=== PATIENT | female | born 1950 | race Caucasian/White ===

== ENCOUNTER 2024-10-15 10:49 | Inpatient (IN) | payer OTHER, SELFPAY ==
[2024-10-15] VITALS (25 sets, daily range): BP systolic 79–102; BP diastolic 41–68; PULSE 52–98; RESP 12–19; TEMP 33.8–37; O2SAT 14–99; BMI 28.5; BMI 22.6
--- NOTE | 2024-10-15 11:07 | EX.ED.DYSGE1 ---
HPI History of Present Illness Chief Complaint: Syncope Informant: patient Onset/Context/Timing Onset: Days (11) Context: Gradual Onset Timing: Continuous Quality: Weakness Location: Generalized Worsened by: Nothing Relieved by: Nothing Narrative Narrative: Patient presents with generalized weakness that has been getting worse over the past 11 days. Patient states her weakness is gradually getting worse. Patient has open wounds to her lower extremities with some mild redness. Patient has been having some drainage from these wounds. Patient admits to some subjective chills but denies any fevers. Patient states she has a history of thrombocytopenia. Patient denies abdominal pain, nausea, vomiting, or diarrhea. Patient denies any chest pain or shortness of breath. [facility] Medical History (Updated 10/15/24 @ 15:[address] Leo Luz DO) Hypothyroidism Chronic acquired lymphedema Chronic anemia History of primary IgA nephropathy Chronic kidney disease, stage 3b Chronic ITP (idiopathic thrombocytopenia) History of CVA (cerebrovascular accident) HLD (hyperlipidemia) HTN (hypertension) Home Medications ?Medication ?Instructions ?Recorded ?Last Taken ?Type atorvastatin 40 mg tablet 40 mg PO DAILY 10/15/24 Unknown History bisacodyl 5 mg tablet 5 mg PO QHS 10/15/24 Unknown History doxazosin 4 mg tablet 4 mg PO QHS 10/15/24 Unknown History furosemide 40 mg tablet 40 mg PO DAILY 10/15/24 Unknown History levothyroxine 200 mcg tablet 200 mcg PO DAILY 10/15/24 Unknown History metoprolol tartrate 100 mg tablet 100 mg PO BID 10/15/24 Unknown History Allergy/AdvReac Type Severity Reaction Status Date / Time adhesive Allergy Mild Rash Verified 10/15/24 11:00 tramadol AdvReac Mild Nausea Verified 10/15/24 11:00 acetaminophen (From Tylenol) AdvReac Nausea Verified 10/15/24 11:00 ampicillin AdvReac Nausea Verified 10/15/24 11:00 Fish Containing Products AdvReac PT UNSURE Verified 10/15/24 11:00 OF REACTION morphine AdvReac Nausea Verified 10/15/24 11:00 peanut (peanuts) AdvReac PT UNSURE Verified 10/15/24 11:02 OF REACTION silver sulfadiazine AdvReac Nausea Verified 10/15/24 11:00 Family History (Updated 10/15/24 @ 15:[address] Radha Machuca MD) Mother CVA (cerebral vascular accident) Hypertension Father No problems noted. Surgical History (Updated 10/15/24 @ 15:[address] Radha Machuca MD) History of surgery on lower extremity Previous back surgery Social History (Updated 10/15/24 @ 15:[address] Radha Machuca MD) household members: family and other details: Lives with her sister. Smoking Status: Never smoker alcohol intake: never substance use type: does not use additional social history: Uses walker baseline. ROS ROS ED Constitutional Constitutional ED: Reports chills and subjective; Denies fever(s) Eyes Eyes: Denies blurry vision or change in vision ENT ENT ED: Denies rhinorrhea or sore throat Cardiovascular Cardiovascular: Denies chest pain or palpitations Respiratory/Chest Respiratory/Chest: Denies cough or dyspnea Gastrointestinal Gastrointestinal: Denies abdominal pain, nausea or vomiting Genitourinary Genitourinary ED: Denies dysuria or hematuria Musculoskeletal Musculoskeletal: Denies back pain or neck pain Integumentary Reports rash; Denies abscess Neurologic Neurologic: Denies headache(s) or weakness Allergic/Immunologic Allergic/Immunologic ED: Denies mouth swelling or urticaria EXAM Physical Exam Const Vital Signs: 10/15/24 10:50 10/15/24 11:12 10/15/24 11:55 Temperature 97.4 F L 98.1 F Temperature Source Oral Oral Pulse Rate 57 L 66 Respiratory Rate 13 19 H Blood Pressure 90/57 L 98/68 Blood Pressure Mean 68 78 Pulse Ox 98 98 Oxygen Delivery Method Room Air Room Air Nasal Cannula 10/15/24 12:00 10/15/24 13:00 10/15/24 14:00 Temperature 98.1 F 98.1 F 98.1 F Temperature Source Oral Oral Oral Pulse Rate 52 L 52 L 52 L Respiratory Rate 14 14 17 Blood Pressure 101/52 L 97/46 L 87/44 L Blood Pressure Mean 68 63 58 Pulse Ox 98 95 95 Oxygen Delivery Method Room Air Room Air Room Air 10/15/24 15:00 Temperature 98 F Temperature Source Oral Pulse Rate 98 Respiratory Rate 14 Blood Pressure 100/54 L Blood Pressure Mean 69 Pulse Ox 99 Oxygen Delivery Method Room Air Positive well nourished and well developed Constitutional Narrative: BMI is 28.5 General Appearance ED: well developed and NAD HEENT Reports moist mucous membranes Neck supple and no JVD Resp normal respiratory effort and clear to auscultation bilaterally Cardio regular rate and regular rhythm GI non-tender and non-distended Palpation: soft Extremity Extremity Narrative: There is bilateral lower extremity edema. There are open wounds over the right lower extremity. There are some mild serous drainage from the wounds. There is some darkened erythema over the lower extremities bilaterally. Range of motion was limited in all motions of the lower extremity secondary to pain and weakness. Neuro oriented x3, CN's II-XII intact bilaterally and no sensory deficits noted Sensorium / Orientation: alert Motor Exam: general weakness Psych mental status grossly normal MDM MDM MDM Narrative Medical decision making narrative: Differential diagnosis includes cellulitis, wound infection, sepsis, urinary tract infection, dehydration, electrolyte abnormality, pneumonia, cardiac dysrhythmia, cardiac ischemia, and gastroenteritis. CBC will be obtained to assess for leukocytosis and anemia. Comprehensive metabolic profile will be obtained to assess for hepatic function, renal function, and electrolyte abnormality. Urinalysis will be obtained to assess for urinary tract infection and hematuria. Blood cultures will be obtained to assess for wound infection. PT with INR and PTT will be obtained to assess for coagulopathy. Serum lactate will be obtained to assess for sepsis. Urine culture will be obtained to assess for urinary tract infection. Blood cultures will be obtained to assess for sepsis. Chest x-ray will be obtained to assess for pneumonia and bronchitis. EKG will be obtained to assess for cardiac dysrhythmia and cardiac ischemia. History & Record Review Additional record(s) reviewed:: No prior records Lab Data Attestation: I reviewed the patient's lab results. Lab results narrative: CBC was reviewed. Platelets were low at 70. The remainder is within normal limits. Comprehensive metabolic profile was reviewed. BUN was 94 and creatinine was 2.92. Glucose was slightly elevated at 128. Calcium was low at 6.3. Serum lactate was reviewed and was elevated at 3.2. High-sensitivity troponin was reviewed and was slightly elevated at 40. 2-hour repeat high-sensitivity troponin was reviewed and was 41. Urinalysis was reviewed. Leukocyte esterase was 25. There are 0-5 white blood cells seen. There is no bacteria noted. Labs: Laboratory Results - last 24 hr 10/15/24 10/15/24 10/15/24 11:35 12:00 13:30 WBC 9.9 RBC 4.84 Hgb 14.4 Hct 40.9 MCV 84.5 MCH 29.8 MCHC 35.2 RDW Std Deviation 47.4 H RDW Coeff of Job 15.5 H Plt Count 70 L MPV 11.1 Immature Gran % (Auto) 0.600 Neut % (Auto) 71.7 H Lymph % (Auto) 18.6 L [place] % (Auto) 8.4 Eos % (Auto) 0.5 Baso % (Auto) 0.2 Absolute Neuts (auto) 7.1 Absolute Lymphs (auto) 1.84 Nucleated RBC % 0 PT 19.1 H INR 1.6 APTT 44.8 H Sodium 130 L Potassium 4.5 Chloride 103 Carbon Dioxide 15.6 L Anion Gap 11 BUN 94 H Creatinine 2.92 H Estim Creat Clear Calc 17.17 L Est GFR (MDRD) Non-Af 16 L BUN/Creatinine Ratio 32.1 H Glucose 128 H Lactic Acid 3.2 H* Calcium 6.3 L* Total Bilirubin 0.79 AST 37 H ALT 23 Alkaline Phosphatase 89 Troponin T High Sens 40 H Troponin T Hi Sens 2 Hr 41 H Total Protein 3.3 L Albumin 1.8 L Globulin 1.5 L Albumin/Globulin Ratio 1.2 Urine Color Yellow Urine Clarity Sl. Cloudy Urine pH 5.0 Ur Specific [place] 1.020 Urine Protein TNP Urine Glucose (UA) Normal Urine Ketones Negative Urine Occult Blood 250 H Urine Nitrite Negative Urine Bilirubin 1 H Urine Urobilinogen Normal Ur Leukocyte Esterase 25 H Urine RBC 10-25 SEEN Urine WBC 0-5 SEEN Ur Squamous Epith Cells 0-5 SEEN Urine Bacteria 0 SEEN Hyaline Casts 25-50 SEEN Fine Granular Casts 0-5 SEEN Urine Mucus 0 SEEN U Random Total Protein 22.0 H Radiography Chest X-Ray - ED: 1 View, Read by ED Physician, Read by Radiologist and No Acute Disease Diagnostic Testing: Clinical Impression(s) from Imaging Studies Chest X-Ray 10/15/24 11:40 IMPRESSION: No Acute Findings. Reading Location: [facility] Portable 1 view chest x-ray was obtained. On my independent interpretation, lung carey are clear. There is normal cardiac silhouette. Bony thorax is normal. There is no acute process noted. Radiologist also interpreted the x-ray and agrees. EKG Initial EKG: Attestation: I personally reviewed and interpreted this EKG as follows: Interpretation: No Acute Injury Pattern and Sinus Bradycardia (52) Comments: EKG was obtained. On my independent interpretation, it showed a sinus bradycardia with a rate of 52. MN interval, QRS interval, and QTc intervals were all normal. [place] was normal. There are no acute ST or T wave changes. Prior EKG tracings: available for review Prior: Unchanged (06/11/2006) Management Discussion w/another healthcare provider: Hospitalist Treatment and Re-Evaluation :: Patient was given IV fluids. Patient was advised of the findings. Patient was given repeat IV fluid bolus. Patient started on Ancef and vancomycin. Patient was given a dose of calcium. Case was discussed with the hospitalist. She will admit the patient to her service. Patient and family understand and are agreeable with the plan. All questions were answered. 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, Discussing w/Consultants, Arranging Admission or Transfer and Performing Direct Patient Care at Bedside Discharge Plan Triage Chief Complaint: Syncope ED Provider: Leo Luz Dx/Rx/DC Orders Clinical Impression: Sepsis, Cellulitis, KATTY (acute kidney injury), Thrombocytopenia, Hypocalcemia Prescriptions: No Action furosemide 40 mg tablet 40 mg PO DAILY atorvastatin 40 mg tablet 40 mg PO DAILY metoprolol tartrate 100 mg tablet 100 mg PO BID doxazosin 4 mg tablet 4 mg PO QHS levothyroxine 200 mcg tablet 200 mcg PO DAILY bisacodyl 5 mg tablet 5 mg PO QHS Primary Care Provider: Sussy Nelson Referrals: Jose Alejandro Lewis DO [Non-Staff] - Print Language: Latvian Disposition Disposition: Acute Care Hospital [facility]
--- NOTE | 2024-10-15 11:12 | EKG12_ITS ---
Test Reason : DIZZINESS Blood Pressure : */* mmHG Vent. Rate : 52 BPM Atrial Rate : 52 BPM P-R Int : 156 ms QRS Dur : 84 ms QT Int : 494 ms P-R-T Axes : 43 49 64 degrees QTcB Int : 459 ms Sinus bradycardia Otherwise normal ECG Confirmed by THIERNO TOLLIVER, LEVI ([id number]), editor house organ SANTANA HUMPHREY ([id number]) on 10/18/2024 8:42:38 AM Referred By: Leo Luz Confirmed By: LEVI PA MD
[2024-10-15] MEDS: 0.9% Normal Saline (500mL Bag) 500 ML 999 ML IV (11:32)
--- NOTE | 2024-10-15 11:40 | RAD_ITS ---
PROCEDURE: CHEST 1 VIEW (PORTABLE) 10/15/2024 REASON FOR EXAM: WEAKNESS TECHNIQUE: Frontal view of the chest. COMPARISON: None FINDINGS: Hardware: EKG electrodes are seen. Heart: The heart is nonenlarged. Atherosclerotic calcification of the aortic arch. Lungs: The lungs are clear. Bones: Degenerative changes are identified within the thoracic spine. Other: Degenerative changes of the right shoulder joint. RAD/Chest 1 View (Portable) IMPRESSION: No Acute Findings. Reading Location: [id number]
[2024-10-15 11:53] LABS: Absolute Lymphocyte Count 1.84 X10^3/uL (0.83-4.51); Absolute Neutrophil Count 7.1 X10^3/uL (2.0-7.7); Basophil# 0.02 X10^3/uL; Basophil% 0.2 % (0-1); Eosinophil# 0.05 X10^3/uL; Eosinophils% 0.5 % (0-5); Hematocrit 40.9 % (37-47); Hemoglobin 14.4 g/dL (12.0-15.0); Lymphocyte # 1.84 X10^3/ul (0.83-4.51); Lymphocyte % 18.6 % (19-41); Mean Corp Hgb Conc 35.2 g/dL (32-36); Mean Corpuscular Hgb 29.8 pg (27.0-32.0); Mean Corpuscular Volume 84.5 fL (81-99); Mean Platelet Vol. 11.1 fl (6.2-12.0); Monocyte# 0.83 X10^3/uL; Monocyte% 8.4 % (0-10); NRBC Flagged by Analyzer 0 % (0-5); Neutrophil # 7.09 X10^3/uL (2.7-7.7); Neutrophil % 71.7 % (47-70); POSITIVE COUNT YES; Platelet Count 70 K/mm3 (150-450); RBC Distribution Width CV 15.5 % (11.6-14.6); RBC Distribution Width SD 47.4 fl (35.1-43.9); Red Blood Count 4.84 M/mm3 (4.2-5.4); White Blood Count 9.9 K/mm3 (4.4-11.0)
[2024-10-15 11:54] LABS: Differential Indicated SCAN CRITERIA MET; International Normalized Ratio 1.6; Prothrombin Time (Protime)PT. 19.1 SECONDS (11.7-14.9)
[2024-10-15 11:55] LABS: Partial Thromboplast Time 44.8 Seconds (24.1-36.2)
[2024-10-15 12:08] LABS: Bacteria 0 SEEN /hpf (None Seen); Mucous, Urine 0 SEEN /hpf (<or=2+)
[2024-10-15 12:25] LABS: ALB/GLOB Ratio 1.2 RATIO (0.9-2.4); AST(SGOT) 37 U/L (<=31); Alanine Aminotransfer ALT/SGPT 23 U/L (<=34); Albumin, Serum 1.8 g/dL (3.4-4.8); Alkaline Phosphatase 89 U/L (35-104); Anion Gap 11 (5-15); BUN 94 mg/dL (4-19); BUN/Creat Ratio 32.1 RATIO (10-20); Carbon Dioxide 15.6 mmol/L (21.0-32.0); Chloride 103 mmol/L (98-108); Creatinine, Serum 2.92 mg/dL (0.70-1.20); EST Glomerular Filtration Rate 16 (>60); Estimated Creatinine Clearance 17.17 ml/min (50-250); Globulin 1.5 g/dL (2.2-4.2); Glucose 128 mg/dL (70-99); Potassium 4.5 mmol/L (3.3-5.1); Protein, Total 3.3 g/dL (5.9-8.4); Sodium Level 130 mmol/L (133-145); Total Bilirubin 0.79 mg/dL (0.00-1.30)
--- NOTE | 2024-10-15 12:25 | ED.RN ---
LAB CALLED CRITICAL CALCIUM OF 6.3
[2024-10-15 12:39] LABS: Troponin T High Sensitivity 40 ng/L (<=14)
[2024-10-15 12:49] LABS: Calcium,Total 6.3 mg/dL (7.6-11.0)
[2024-10-15 12:52] LABS: Lactic Acid 3.2 mmol/L (0.0-2.0)
[2024-10-15 13:10] LABS: Color, Urine Yellow (Yellow); Glucose, Dipstick Normal (Normal); Ketone-Dipstick Negative (Negative); Leukocyte Esterase-Dipstick 25 /ul (Negative); Nitrite-Dipstick Negative (Negative); Occult Blood-Urine 250 /ul (Negative); Urine Clarity Sl. Cloudy (Clear); Urine Urobilinogen Normal (Normal)
[2024-10-15 13:16] LABS: Urine Bilirubin Dipstick 1 mg/dL (Negative)
[2024-10-15 13:19] LABS: Red Blood Cells-Urine 10-25 SEEN /hpf (0-5); White Blood Cells 0-5 SEEN /hpf (0-5)
[2024-10-15 13:22] LABS: Squamous Epithelial Cells - UA 0-5 SEEN /hpf (5-10)
[2024-10-15] MEDS: fentaNYL 100 MCG/2 ML Ampul 25 MCG IV ×2 (13:22→18:17)
[2024-10-15 13:23] LABS: Fine Granular Cast- Urine 0-5 SEEN /lpf (0-5); Hyaline Cast 25-50 SEEN /lpf (0-5)
--- NOTE | 2024-10-15 13:25 | ED.RN ---
unable to change sepsis screen for SBP <100
[2024-10-15 14:20] LABS: Troponin T High Sens 2 HR 41 ng/L (<=14)
[2024-10-15] MEDS: 0.9% Normal Saline (1000mL) 1,000 ML 999 ML IV ×6 (14:31→21:50)
[2024-10-15] MEDS: Cefazolin 2 GM in Syringe 10 ML IV (14:31)
--- NOTE | 2024-10-15 14:41 | PCM.HP.STD ---
HPI - General General Date of Admission: 10/15/24 Date of Service: 10/15/24 Chief Complaint: Weakness, debility, worsening LE appearance/wounds with drainage. 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 Brian (prior baseline Cr 1.5 per [place] admission records 12/25/23), Chronic thrombocytopenia/ITP following with hematology Dr. Styles, Chronic BL LE wounds following with Wound Care, Hx Rheumatic fever who presents to the [facility] ED on 10/15/2024 with persistent worsening weakness over the last 11 days with open wounds to her lower extremities with mild periwound erythema with some drainage with subjective chills but no fevers with a chronic history of lower extremity wounds following with the wound care center per records from [place] however unclear last time when she had been there with no recent URI type symptoms but did report decreased intake with nausea/dry heaves but still some UOP although decreased but no diarrhea or abdominal pain but progressively worsening weakness and eventual syncopal event reported while patient was using the toilet prompted eventual ED evaluation to be evaluated. Workup in the ED included T97.4, heart 57, BP 90/57, respiratory rate 13, 98% room air with most recent repeat labs T98.1 Oral, heart rate 52, BP 97/46, respiratory rate 14, 95% on room air, CBC with WBC 9.9, hemoglobin 14.4, platelets 70 without marked shift, coags with INR 1.6, PT 19.1, PTT 44.8, CMP with sodium 130, compacted 15.6, BUN/creatinine 94/2.92, GFR 16, glucose 128, calcium 6.3, lactic acid 3.2, hepatic profile with AST/ALT 37/23, alk phos 89, total protein 3.3, albumin 1.8, globulin 1.5, initial troponin 40, urinalysis cloudy, specific cavity 1.020, occult blood 250, nitrate negative, leukocyte esterase 25 with urine RBCs 10-25 but no evidence of marked WBCs or urine bacteria, chest x-ray with no acute cardiopulmonary findings, EKG with sinus bradycardia with no acute evidence of ischemia. In the ED patient ministered IV Ancef, IV vancomycin, 2 L normal saline, fentanyl 25 mcg IV x 1. Records obtained through clinic sink as no available records in the [facility] system included records from admission at [facility] 11/2023 including labs and most recent follow-up labs in the cleansing system including 12/31/2023 CBC with WBC 3.5, hemoglobin 11.4, MCV 85, platelet 35, 12/31/2023 BMP with sodium 137, potassium 4.0, chloride 108, CO2 23.1, BUN/creatinine 23/1.39, glucose 177, GFR 37. Unable to find any recent echocardiogram in the cleansing system or any previous wound cultures for resistance patterns/organisms. [facility] Medical History (Updated 10/15/24 @ 15:[address] Radha Machuca MD) Hypothyroidism Chronic acquired lymphedema Chronic anemia History of primary IgA nephropathy Chronic kidney disease, stage 3b Chronic ITP (idiopathic thrombocytopenia) History of CVA (cerebrovascular accident) HLD (hyperlipidemia) HTN (hypertension) Home Medications ?Medication ?Instructions ?Recorded ?Last Taken ?Type atorvastatin 40 mg tablet 40 mg PO DAILY 10/15/24 Unknown History bisacodyl 5 mg tablet 5 mg PO QHS 10/15/24 Unknown History doxazosin 4 mg tablet 4 mg PO QHS 10/15/24 Unknown History furosemide 40 mg tablet 40 mg PO DAILY 10/15/24 Unknown History levothyroxine 200 mcg tablet 200 mcg PO DAILY 10/15/24 Unknown History metoprolol tartrate 100 mg tablet 100 mg PO BID 10/15/24 Unknown History Allergy/AdvReac Type Severity Reaction Status Date / Time adhesive Allergy Mild Rash Verified 10/15/24 11:00 tramadol AdvReac Mild Nausea Verified 10/15/24 11:00 acetaminophen (From Tylenol) AdvReac Nausea Verified 10/15/24 11:00 ampicillin AdvReac Nausea Verified 10/15/24 11:00 Fish Containing Products AdvReac PT UNSURE Verified 10/15/24 11:00 OF REACTION morphine AdvReac Nausea Verified 10/15/24 11:00 peanut (peanuts) AdvReac PT UNSURE Verified 10/15/24 11:02 OF REACTION silver sulfadiazine AdvReac Nausea Verified 10/15/24 11:00 Family History (Updated 10/15/24 @ 15:[address] Radha Machuca MD) Mother CVA (cerebral vascular accident) Hypertension Father No problems noted. Surgical History (Updated 10/15/24 @ 15:[address] Radha Machuca MD) History of surgery on lower extremity Previous back surgery Social History (Updated 10/15/24 @ 15:[address] Radha Machuca MD) household members: family and other details: Lives with her sister. Smoking Status: Never smoker alcohol intake: never substance use type: does not use additional social history: Uses walker baseline. ROS ROS Narrative Admission Review of Systems: CONSTITUTIONAL: No weight loss, + subjective fever, chills, weakness or fatigue. HEENT: Eyes: No visual loss, blurred vision, double vision or yellow sclerae. Ears, Nose, Throat: No hearing loss, sneezing, congestion, runny nose or sore throat. SKIN: No rash or itching, lesions except + notable stasis blisters, ulcerated wounds especially the right lower extremity, bilateral lower extremity venous stasis skin changes, chronic lymphedema, seepage diffusely. CARDIOVASCULAR: No chest pain, chest pressure or chest discomfort, palpitations, edema, orthopnea, syncopal events. RESPIRATORY: No shortness of breath, cough or sputum, wheezing, hemoptysis. GASTROINTESTINAL: + Decreased appetite/anorexia, nausea with dry heaving. No diarrhea, abdominal pain, melena, BRBPR. GENITOURINARY: + Decreased urine output. No dysuria, frequency, urgency or retention. NEUROLOGICAL: No headache, dizziness, syncope, paralysis, ataxia, numbness or tingling in the extremities, focal weakness, change in bowel or bladder control, seizure. MUSCULOSKELETAL: + muscle, back pain, joint pain or stiffness. HEMATOLOGIC: + Chronic anemia, easy bleeding/bruising. LYMPHATICS: No enlarged nodes. No history of splenectomy. PSYCHIATRIC: No history of depression or anxiety. ENDOCRINOLOGIC: No reports of sweating, cold or heat intolerance. No polyuria or polydipsia. ALLERGIES: No history of asthma, hives, eczema or rhinitis. Vital Signs Vital Signs Vital Signs: 10/15/24 10:50 10/15/24 11:12 10/15/24 11:55 Temperature 97.4 F L 98.1 F Temperature Source Oral Oral Pulse Rate 57 L 66 Respiratory Rate 13 19 H Blood Pressure 90/57 L 98/68 Blood Pressure Mean 68 78 Pulse Ox 98 98 Oxygen Delivery Method Room Air Room Air Nasal Cannula 10/15/24 12:00 10/15/24 13:00 10/15/24 14:00 Temperature 98.1 F 98.1 F 98.1 F Temperature Source Oral Oral Oral Pulse Rate 52 L 52 L 52 L Respiratory Rate 14 14 17 Blood Pressure 101/52 L 97/46 L 87/44 L Blood Pressure Mean 68 63 58 Pulse Ox 98 95 95 Oxygen Delivery Method Room Air Room Air Room Air Weight Weight: 171 lb 8.314 oz Body Mass Index (BMI) 28.5 Physical Exam Narrative Physical Examination: General: Fatigued but awake, alert, oriented to self, place and recent events, sister does answer some questions when she becomes fatigued, range cooperative, laying in the ED bed, ill-appearing. Skin: Normal color, normal turgor, no icterus, no cyanosis except notable stasis blisters, ulcerated wounds especially the right lower extremity, bilateral lower extremity venous stasis skin changes, chronic lymphedema, seepage diffusely. HEENT: AT/NC, EOMI, PERRLA, dry MM, no carotid bruits or JVD noted. Lungs: Diminished, greater bases, mildly decreased effort, no evidence of any distress, no rales, ronchi or wheezing. Heart: Mildly bradycardic with regularrhythm; no gallop, rub audible. Abdomen: Soft, overweight, NTTP, ND, distant normal BS, no appreciated HSM. Extremities: No cyanosis, no clubbing, significant bilateral lower extremity pitting edema complicated by see skin Neurological: Patient awake, alert, oriented as noted, cognitive function suspect near baseline intact although patient is markedly fatigued, pupils equally reactive to light and accommodation, cranial nerves gross normal, moving all 4 extremities but limited bilateral lower extremity secondary to discomfort, no focal deficits, strength severely globally decreased secondary to acute presentation. Psychiatric: Affect appears flat, fatigued, ill-appearing, no acute evidence of depressive or anxiety feelings. Results Lab / Micro Data 10/15/24 11:35 10/15/24 11:35 Labs: Laboratory Results - last 24 hr 10/15/24 11:35: WBC 9.9, RBC 4.84, Hgb 14.4, Hct 40.9, MCV 84.5, MCH 29.8, MCHC 35.2, RDW Std Deviation 47.4 H, RDW Coeff of Job 15.5 H, Plt Count 70 L, MPV 11.1, Immature Gran % (Auto) 0.600, Neut % (Auto) 71.7 H, Lymph % (Auto) 18.6 L, [place] % (Auto) 8.4, Eos % (Auto) 0.5, Baso % (Auto) 0.2, Absolute Neuts (auto) 7.1, Absolute Lymphs (auto) 1.84, Nucleated RBC % 0, PT 19.1 H, INR 1.6, APTT 44.8 H, Sodium 130 L, Potassium 4.5, Chloride 103, Carbon Dioxide 15.6 L, Anion Gap 11, BUN 94 H, Creatinine 2.92 H, Estim Creat Clear Calc 17.17 L, Est GFR (MDRD) Non-Af 16 L, BUN/Creatinine Ratio 32.1 H, Glucose 128 H, Lactic Acid 3.2 H*, Calcium 6.3 L*, Total Bilirubin 0.79, AST 37 H, ALT 23, Alkaline Phosphatase 89, Troponin T High Sens 40 H, Total Protein 3.3 L, Albumin 1.8 L, Globulin 1.5 L, Albumin/Globulin Ratio 1.2 10/15/24 12:00: Urine Color Yellow, Urine Clarity Sl. Cloudy, Urine pH 5.0, Ur Specific [place] 1.020, Urine Protein TNP, Urine Glucose (UA) Normal, Urine Ketones Negative, Urine Occult Blood 250 H, Urine Nitrite Negative, Urine Bilirubin 1 H, Urine Urobilinogen Normal, Ur Leukocyte Esterase 25 H, Urine RBC 10-25 SEEN, Urine WBC 0-5 SEEN, Ur Squamous Epith Cells 0-5 SEEN, Urine Bacteria 0 SEEN, Hyaline Casts 25-50 SEEN, Fine Granular Casts 0-5 SEEN, Urine Mucus 0 SEEN, U Random Total Protein 22.0 H 10/15/24 13:30: Troponin T Hi Sens 2 Hr 41 H Imaging Radiology Impression Chest X-Ray 10/15/24 11:40 IMPRESSION: No Acute Findings. Reading Location: [id number] Assessment & Plan Assessment/Plan (1) Sepsis: (2) Cellulitis: (3) KATTY (acute kidney injury): PLAN: Plan The patient is a 74 y/o F w/ PMHx: Hx CVA w/ residual deficits, HTN, HLD, Hypothyroidism, CKD stage IIIb secondary to underlying IgA nephropathy following with Dr. Brian (prior baseline Cr 1.5 per [place] admission records 12/25/23), Chronic thrombocytopenia/ITP following with hematology Dr. Styles, Chronic BL LE wounds following with Wound Care, Hx Rheumatic fever who presents to the [facility] ED on 10/15/2024 with persistent worsening weakness over the last 11 days with open wounds to her lower extremities with mild periwound erythema with some drainage with subjective chills but no fevers with a chronic history of lower extremity wounds following with the wound care center per records from [place] however unclear last time when she had been there with no recent URI type symptoms but did report decreased intake with nausea/dry heaves but still some UOP although decreased but no diarrhea or abdominal pain but progressively worsening weakness and eventual syncopal event reported while patient was using the toilet prompted eventual ED evaluation to be evaluated. #1. Acute sepsis (source, lactic acidosis, acute kidney injury with creatinine 2.9 to, INR 1.6, platelets 70) MAP less than 65, secondary to acute bilateral lower extremity acute on chronic wounds, bilateral lower extremity acute periwound cellulitis: Will admit to ICU given MAP currently in the ED less than 65, currently on her second liter IV fluids, will continue 30 cc/kg IV fluid bolus, will consult geometry teacher per protocol, maintain on IV Vanco and Zosyn to be cautious given history of chronic wounds, will obtain Wound Cx, will obtain Wound MRSA PCR, will request wound RN consultation, ESR and CRP requested, continue to trend CBC, procalcitonin requested, will obtain bilateral lower extremity duplex ultrasound to be cautious, placement Giacomo wraps if able to tolerate, PT/OT/case management consulted for discharge planning. #2. Acute kidney injury on CKD stage IIIb secondary to underlying IgA nephropathy: Suspect secondary to acute sepsis as noted #1, admission BUN/Cr 94/2.92, prior baseline creatinine noted to be 1.5 and previous records however these are from an admission 12/28/2023 at [place] and following this most recent labs in the system including send noted 12/31/2023 BMP with BUN/creatinine 23/1.39. Will continue to hydrate, hold nephrotoxic medications and repeat chemistry in AM. Given severity of underlying disease and poor follow-up we will also request early involvement of nephrology. #3. Acute hypocalcemia, Unclear etiology: Admission calcium 6.3, calcium gluconate ordered, will obtain ionized calcium, obtain vitamin D level (25-(OH)D, 1,25-(OH)2D), PTH, Mag, Phos, UCa levels to further assess. #4. Acute Syncopal Event with Indeterminate cardiac enzyme of uncertain significance: Given #1 suspect this is likely etiology in addition to hypotension, EKG in ED with sinus bradycardia with no acute evidence of ischemia, CXR w/ no acute cardiopulmonary finding, initial trop 40. Will maintain on a monitored bed to assure no acute myocardial infarction with serial cardiac enzymes and EKGs. Magnesium level requested. Echocardiogram requested. Orthostatics requested. Will maintain on fall precautions. #5. Acute hyponatremia, suspect primarily hypovolemic component with sepsis, poor intake: Admission sodium 130, chloride however 103, will continue hydration as noted, repeat CMP in AM. #6. Chronic thrombocytopenia, history ITP: Admission platelet 70, unfortunately baseline from her labs noted an admission at [place] 11/2023 platelets 51, most recent labs noting 12/31/2023 platelets 35, appear to vacillate, will continue to closely trend CBC. Very cautiously using heparin chemoprophylaxis as noted, will hold if drops platelets. #7. History CVA: Per discussion not necessarily on aspirin therapy because of ITP/thrombocytopenic history. Attempted to clarify. Will continue statin, temporally holding hypertensive regimen given as noted above #1. #8. Chronic normocytic anemia: Admission hemoglobin 14.4, MCV 84.5 at baseline records indicate previous baseline 11, suspect altered given her presentation, repeat CBC in AM. #9. Hypertension: Given current presentation as noted #1, holding all hypertensive regimen, add back once clinically appropriate. #10. Hypothyroidism: Will continue patient on levothyroxine regimen, TSH requested. #11. Hyperlipidemia: Will continue patient on statin therapy. #12. DVT prophylaxis: Heparin cautiously given underlying ITP/chronic thrombocytopenia. #13. CODE status: Patient notes that her medical decision-maker is her sister who is present. She does not have formal healthcare power of patent attorney or living will in place. Discussed CODE status at length including difference between FULL code, DNR-CCA and DNR-CC status. Following discussions about the differences in these status, requested DNR-CCA, no intubation. Also discussed at length concept of a central line and pressor therapy usage. Patient and sister declined central line and would only be willing to use transient pressor therapy up to the maximum dose allowed peripherally. Advanced Care Planning Face to Face Time: 16 minutes. Sepsis Attestation Sepsis Attestation: Agree w/Sepsis Date exam was performed: 10/15/24 Time exam was performed: 15:21 Possible Source of Sepsis: Skin/soft tissue Sepsis Organ Dysfunction Criteria Present: SBP < 90 mmHg or MAP < 65 mmHg, Creatinine > 2.0 mg/dL, Platelets <100,000 / uL, INR > 1.5 or aPTT > 60 sec and Lactic Acid > 2 mmol/L Fluid Resuscitation Fluid resuscitation indicated?: Yes Fluid Resuscitation ordered: 30 ml/kg fluid bolus ordered Sepsis Note Date exam was performed: 10/15/24 Time exam was performed: 15:22 Sepsis Attestation: Sepsis re-evaluation was performed Response to fluids: Fluid responsive hypotension Charges/Coding Visit Charges Inpatient E&M: 98472 Init Hosp L3 Procedures Hospitalists Procedures: 63816 Advncd Care Plan 30 Min
[2024-10-15] MEDS: Vancomycin HCl 2,000 MG in 0.9% Normal Saline (500mL Bag) 500 ML 250 MG IV (14:56)
--- NOTE | 2024-10-15 15:21 | VDLE_ITS ---
Reason For Study Reason For Study: BLE Pain RIGHT LEFT GSV is normal. GSV is normal. CFV is compressible, spontaneous, phasic, competent CFV is compressible, spontaneous, phasic, competent, and demonstrates normal augmentation. and demonstrates normal augmentation. FV is compressible, spontaneous, phasic, competent and FV is compressible, spontaneous, phasic, competent demonstrates normal augmentation. and demonstrates normal augmentation. Acute deep vein thrombosis is noted in the POP V. It POP V is compressible, spontaneous, phasic, competent is dilated and NONCOMPRESSIBLE. and demonstrates normal augmentation. Acute deep vein thrombosis is noted in the T/P Trunk. T/P Trunk is compressible. It is dilated and NONCOMPRESSIBLE. Unable to visualize PTV and Nicole V due to open Acute deep vein thrombosis is noted in the PTV. It is wounds. dilated and NONCOMPRESSIBLE. RT PerV is compressible. Procedure This is a venous duplex using B-mode, color flow and spectral Doppler. Exam performed portable in ICU/CCU. Limited views were obtained. The study was technically difficult due to patient positioning and open wounds. A preliminary report was called and/or faxed to ICU project lead. VL/Venous Duplex US - Juanjose Extrem Interpretation Summary Acute deep vein thrombosis is noted in the right popliteal vein. Acute deep vei n thrombosis is noted in the right tibio- peroneal trunk. Acute deep vein thrombosis is noted in the right posterior tibi al vein. The remainder of the right lower extremity deep venous system is patent and compressible. Deep veins of the left lower extremity are patent and compressible segmentally. There is no evidence of left lower extremity deep vei n thrombosis. Valvular competence appears intact within the proximal deep venous systems bilaterally. The great saphenous veins appear bilaterally patent and compressible segmentally. The left posterior tibial vein and peroneal vein were not visualized due to the presence of open wounds. Ordering Physician: Radha Machuca Referring Physician: Sussy Nelson Performed By: Jeff Farah RVT
[2024-10-15 15:39] LABS: Reflex Lactate? Y
[2024-10-15 15:41] LABS: Reflex Lactate? Y
[2024-10-15] MEDS: Calcium Gluconate 1 GM/10 ML Vial 2 GM IVP (15:59)
[2024-10-15 16:31] LABS: Erythrocyte Sedimentation Rate < 1 mm/hr (0-30)
[2024-10-15 16:37] LABS: Magnesium 2.3 mg/dL (1.5-2.2); Phosphorus 5.3 mg/dL (2.7-4.5)
[2024-10-15 17:21] LABS: Lactic Acid 2.1 mmol/L (0.0-2.0)
[2024-10-15 17:30] LABS: Troponin T High Sens 4 HR 35 ng/L (<=14)
--- NOTE | 2024-10-15 18:26 | PCM.HOSP.N ---
Hospitalist Note Patient now with MAP x 3 at 61 despite IV fluid 30 cc/kg sepsis protocol. Additionally patient hypothermic, Ryan hugger initiated. Will initiate norepinephrine however as noted previously lengthy discussion with family and they do not want central line but are amenable to peripheral low-dose usage of pressor therapy only. This was also discussed with staff Sepsis Attestation Sepsis Attestation: Agree w/Sepsis Date exam was performed: 10/15/24 Time exam was performed: 18:27 Possible Source of Sepsis: Skin/soft tissue Sepsis Organ Dysfunction Criteria Present: SBP < 90 mmHg or MAP < 65 mmHg, Creatinine > 2.0 mg/dL, INR > 1.5 or aPTT > 60 sec and Lactic Acid > 2 mmol/L Sepsis Note Date exam was performed: 10/15/24 Time exam was performed: 18:28 Sepsis Attestation: Sepsis re-evaluation was performed Response to fluids: Non Fluid responsive hypotension and Vasopressors started
--- NOTE | 2024-10-15 19:18 | ECHOD_ITS ---
ECHO/Echo Complete Interpretation Summary Normal LV size. The left ventricular ejection fraction is 65 %. There is mild to moderate mitral annular calcification. Contrast injection was performed. Ordering Physician: Radha Machuca Referring Physician: Sussy Nelson Performed By: Bekah Hammond, SAM, RVT
[2024-10-15] MEDS: 0.9% Normal Saline (1000mL) 1,000 ML 100 ML IV (19:47)
[2024-10-15] MEDS: Norepinephrine 8 MG in 0.9% Normal Saline (250mL Bag) 242 ML 9.4 MG CONT INF (20:22)
[2024-10-15] MEDS: Menthol/Lanolin/Calamine/Znox 113 GM Tube 1 APPLIC TOPICAL ×2 (20:22→22:16)
[2024-10-15] MEDS: Calcium Gluconate 1 GM/10 ML Vial IVP (20:33)
[2024-10-15 20:44] LABS: PTHIN 21 pg/mL (11-61)
[2024-10-15 21:01] LABS: Procalcitonin 0.08 ng/mL (<=0.10)
[2024-10-15 21:18] LABS: Ionized Calcium Order ORDER TUBE
[2024-10-15] MEDS: Bisacodyl 5 MG Tablet PO (22:17)
[2024-10-15] MEDS: Piperacil/Tazobactam 3.375 GM in 0.9% Normal Saline (50mL MB+) 50 ML IV (22:17)
[2024-10-15] MEDS: Heparin Injection (Vial) 5,000 UNIT/ML VIAL 5000 UNIT SC (22:17)
[2024-10-15 23:13] LABS: Ionized Calcium 0.95 mmol/L (1.09-1.30)
[2024-10-16] VITALS (34 sets, daily range): BP systolic 83–121; BP diastolic 43–87; PULSE 55–68; RESP 11–21; TEMP 36.6–37.3; O2SAT 95–98; BMI 22.6
[2024-10-16 00:08] LABS: Lactic Acid 1.6 mmol/L (0.0-2.0)
[2024-10-16] MEDS: fentaNYL 100 MCG/2 ML Ampul 25 MCG IV ×3 (01:25→21:23)
[2024-10-16] MEDS: Piperacil/Tazobactam 3.375 GM in 0.9% Normal Saline (50mL MB+) 50 ML IV ×2 (06:21→21:49)
[2024-10-16] MEDS: Levothyroxine 100 MCG Tablet 200 MCG PO (06:23)
[2024-10-16 07:07] LABS: Absolute Lymphocyte Count 2.27 X10^3/uL (0.83-4.51); Absolute Neutrophil Count 9.2 X10^3/uL (2.0-7.7); Basophil# 0.02 X10^3/uL; Basophil% 0.2 % (0-1); Eosinophil# 0.13 X10^3/uL; Hematocrit 43.8 % (37-47); Lymphocyte # 2.27 X10^3/ul (0.83-4.51); Lymphocyte % 17.8 % (19-41); Mean Corp Hgb Conc 34.2 g/dL (32-36); Mean Corpuscular Hgb 29.4 pg (27.0-32.0); Mean Corpuscular Volume 85.9 fL (81-99); Mean Platelet Vol. 9.5 fl (6.2-12.0); Monocyte# 1.09 X10^3/uL; Monocyte% 8.6 % (0-10); NRBC Flagged by Analyzer 0 % (0-5); Neutrophil # 9.15 X10^3/uL (2.7-7.7); Neutrophil % 71.9 % (47-70); POSITIVE COUNT YES; Platelet Count 78 K/mm3 (150-450); RBC Distribution Width CV 15.8 % (11.6-14.6); White Blood Count 12.7 K/mm3 (4.4-11.0)
--- NOTE | 2024-10-16 07:29 | PN.HOSP_ITS ---
Reason for Visit Reason for Visit: Diagnoses Sepsis, unspecified organism (10/15/24) Cellulitis, unspecified (10/15/24) Acute kidney failure, unspecified (10/15/24) Objective Data Objective Data Vital Signs: Vital Signs Temp Pulse Resp BP Pulse Ox O2 Del Method 98.0 F 57 L 13 86/47 L 96 Room Air 10/16/24 07:00 10/16/24 07:00 10/16/24 07:00 10/16/24 07:00 10/16/24 07:00 10/16/24 07:00 Oxygen Delivery Method Room Air Weight: 171 lb 1.6 oz Body Mass Index (BMI) 22.6 Intake & Output: Intake and Output for Last 24 Hours 10/14/24 10/15/24 10/16/24 23:59 23:59 23:59 Intake Total 6443.05 / 6581.85 1440.4 / 1440.4 Output Total 120 / 120 300 / 300 Balance 6323.05 / 6461.85 1140.4 / 1140.4 Lab / Micro Data 10/16/24 06:50 10/16/24 06:50 Labs: Laboratory Results - last 24 hr 10/15/24 11:35: WBC 9.9, RBC 4.84, Hgb 14.4, Hct 40.9, MCV 84.5, MCH 29.8, MCHC 35.2, RDW Std Deviation 47.4 H, RDW Coeff of Job 15.5 H, Plt Count 70 L, MPV 11.1, Immature Gran % (Auto) 0.600, Neut % (Auto) 71.7 H, Lymph % (Auto) 18.6 L, Faulkner % (Auto) 8.4, Eos % (Auto) 0.5, Baso % (Auto) 0.2, Absolute Neuts (auto) 7.1, Absolute Lymphs (auto) 1.84, Nucleated RBC % 0, ESR < 1, PT 19.1 H, INR 1.6, APTT 44.8 H, Sodium 130 L, Potassium 4.5, Chloride 103, Carbon Dioxide 15.6 L, Anion Gap 11, BUN 94 H, Creatinine 2.92 H, Estim Creat Clear Calc 17.17 L, E st GFR (MDRD) Non-Af 16 L, BUN/Creatinine Ratio 32.1 H, Glucose 128 H, Lactic Acid 3.2 H*, Calcium 6.3 L*, Total Bilirubin 0.79, AST 37 H, ALT 23, Alkaline Phosphatase 89, Troponin T High Sens 40 H, Total Protein 3.3 L, Albumin 1.8 L, G lobulin 1.5 L, Albumin/Globulin Ratio 1.2 10/15/24 12:00: Urine Color Yellow, Urine Clarity Sl. Cloudy, Urine pH 5.0, Ur Specific [place] 1.020, Urine Protein TNP, Urine Glucose (UA) Normal, Urine Ketones Negative, Urine Occult Blood 250 H, Urine Nitrite Negative, Urine Bilirubin 1 H, Urine Urobilinogen Normal, Ur Leukocyte Esterase 25 H, Urine RBC 10-25 SEEN, Urine WBC 0-5 SEEN, Ur Squamous Epith Cells 0-5 SEEN, Urine Bacteria 0 SEEN, Hyaline Casts 25-50 SEEN, Fine Granular Casts 0-5 SEEN, Urine Mucus 0 SEEN, U Random Total Protein 22.0 H 10/15/24 13:30: Phosphorus 5.3 H, Magnesium 2.3 H, Troponin T Hi Sens 2 Hr 41 H, C-React Prot Ext Range 20.30 H 10/15/24 16:32: Lactic Acid 2.1 H*, Troponin T Hi Sens 4Hr 35 H 10/15/24 20:10: Ionized Calcium 0.95 L, Vitamin D 25-Hydroxy 44.0, Procalcitonin 0.08, PTH Intact 21 10/15/24 22:47: Lactic Acid 1.6 10/16/24 06:50: WBC 12.7 H, RBC 5.10, Hgb 15.0, Hct 43.8, MCV 85.9, MCH 29.4, MCHC 34.2, RDW Std Deviation 49.0 H, RDW Coeff of Job 15.8 H, Plt Count 78 L, MPV 9.5, Immature Gran % (Auto) 0.500, Neut % (Auto) 71.9 H, Lymph % (Auto) 17.8 L, Faulkner % (Auto) 8.6, Eos % (Auto) 1.0, Baso % (Auto) 0.2, Absolute Neuts (auto) 9.2 H, Absolute Lymphs (auto) 2.27, Nucleated RBC % 0 Micro: Microbiology 10/15/24 21:12 Nasal Secretion MRSA (PCR) - Final 10/15/24 21:12 Wound - Leg, Left Skin and Soft Tissue MRSA/MSSA (PCR - Preliminary Staphylococcus aureus Radiography Diagnostic Testing: Radiology Impression Chest X-Ray 10/15/24 11:40 IMPRESSION: No Acute Findings. Reading Location: [facility] Physical Exam Narrative Seen and examined The patient has bilateral chronic lower leg wounds with seepage/drainage for about 6 months. Not very ambulatory at home. Physical General: Alert, Oriented x3, Cooperative HEENT: Atraumatic, PERRLA, EOMI, Normocephalic Oral: No Gingival or Mucosal Lesions/ Ulcerations Neck: Supple, No JVD, Negative Carotid Bruits Chest wall/Lungs: Air entry diminished in bilateral lung bases. No crepitation/rhonchi Cardiovascular: Sinus bradycardia, Normal S1, Normal S2, No M/G/R Abdomen: Bowel Sounds Present, Soft, Non Tender, Non-Distended : No dysuria. No renal angle tenderness. No suprapubic tenderness. Extremities: No edema, Capillary Refill Less than 3 Seconds Skin: Legs cold and clammy, dressing wrapped. See patient chronic wound. Contiguous area of cellulitis Musculoskeletal: No Tenderness to Palpation of Joints or Extremities Neurological: Cranial nerves II-XII grossly intact, DTR 2+/4. No acute focal neurological deficit. Psych/Mental Status: Flat affect Assessment & Plan Assessment/Plan (1) Sepsis: (2) Cellulitis: (3) KATTY (acute kidney injury): PLAN: Plan The patient is a 74 y/o F was admitted with generalized weakness getting worse over the past 11 days. Patient had open wounds in both lower extremities with erythema and drainage with subjective chills but no fever, decreased oral intake. She also had syncopal event on the toilet. #1. Septic shock most likely due to skin and soft tissue infection (source, lactic acidosis, acute kidney injury with creatinine 2.9 to, INR 1.6, platelets 70) MAP less than 65, secondary to acute bilateral lower extremity acute on chronic wounds, bilateral lower extremity contiguous cellulitis: Patient admitted in ICU. Patient had IV fluid as per sepsis protocol and then started on vasopressor norepinephrine therefore meets the criteria for septic shock. Thereafter Levophed was tapered down and started on midodrine 10 mg 3 times daily. On vancomycin and Zosyn. Clindamycin added as per aquarist recommendation to decrease the toxin. Preliminary Gram stain of wound shows GNR, GNR lactose tyre fitter and staph species. MRSA nasal screen negative. Continue Giacomo wrap bandage. PT and OT #2. Acute kidney injury on CKD stage IIIb secondary to underlying IgA nephropathy: Sadmission BUN/Cr 94/2.92, prior baseline creatinine 12/31/2023 BMP with BUN/creatinine 23/1.39. 10/16: No change in creatinine 2.98 #3. Acute hypocalcemia, Unclear etiology: Admission calcium 6.3, calcium gluconate ordered, will obtain ionized calcium, obtain vitamin D level (25- (OH)D, 1,25-(OH)2D), PTH, Mag, Phos, UCa levels to further assess. 10/16: Ionized calcium 0.95 low. Patient received IV calcium. Repeat calcium 7.6. Vitamin D 25-hydroxy 44. Procalcitonin normal. PTH 21. #4. Acute Syncopal Event with Indeterminate cardiac enzyme of uncertain significance: Given #1 suspect this is likely etiology in addition to hypotension, EKG in ED with sinus bradycardia with no acute evidence of ischemia, CXR w/ no acute cardiopulmonary finding, initial trop 40. Will maintain on a monitored bed to assure no acute myocardial infarction with serial cardiac enzymes and EKGs. Magnesium level requested. Echocardiogram requested. Orthostatics requested. Will maintain on fall precautions. #5. Acute hyponatremia, suspect primarily hypovolemic component with sepsis, poor intake: Admission sodium 130, chloride however 103, will continue hydration as noted, repeat CMP in AM. 10/16: Sodium is 131 no significant #6. Chronic thrombocytopenia, history ITP: Admission platelet 70, unfortunately baseline from her labs noted an admission at [place] 11/2023 platelets 51, most recent labs noting 12/31/2023 platelets 35, appear to vacillate, will continue to closely trend CBC. Very cautiously using heparin chemoprophylaxis as noted, will hold if drops platelets. 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 History CVA: Per discussion not necessarily on aspirin therapy because of ITP/thrombocytopenic history continue statin, #8. Chronic normocytic anemia: Admission hemoglobin 14.4, MCV 84.5 at baseline records indicate previous baseline 11. Hemoglobin 15/43.8 #9. Hypertension: Given current presentation as noted #1, holding all hypertensive regimen, add back once clinically appropriate. #10. Hypothyroidism: continue patient on levothyroxine regimen, TSH requested. #11. Hyperlipidemia: continue patient on statin therapy. #12. DVT prophylaxis: Heparin cautiously given underlying ITP/chronic thrombocytopenia. #13. CODE status: Patient notes that her medical decision-maker is her sister who is present. She does not have formal healthcare power of personal injury attorney or living will in place. Discussed CODE status at length including difference between FULL code, DNR-CCA and DNR-CC status. Following discussions about the differences in these status, requested DNR-CCA, no intubation. Also discussed at length concept of a central line and pressor therapy usage. Patient and sister declined central line and would only be willing to use transient pressor therapy up to the maximum dose allowed peripherally. Charges/Coding Visit Charges Inpatient E&M: 63114 Subs Hosp L3
[2024-10-16 08:16] LABS: Hemoglobin A1c 6.6 % (<=5.6)
[2024-10-16 08:46] LABS: AST(SGOT) 43 U/L (<=31); Alanine Aminotransfer ALT/SGPT 23 U/L (<=34); Alkaline Phosphatase 104 U/L (35-104); Anion Gap 13 (5-15); BUN 92 mg/dL (4-19); BUN/Creat Ratio 30.7 RATIO (10-20); Calcium,Total 7.6 mg/dL (7.6-11.0); Carbon Dioxide 14.2 mmol/L (21.0-32.0); Chloride 104 mmol/L (98-108); Creatinine, Serum 2.98 mg/dL (0.70-1.20); EST Glomerular Filtration Rate 16 (>60); Estimated Creatinine Clearance 18.82 ml/min (50-250); Glucose 120 mg/dL (70-99); Potassium 4.9 mmol/L (3.3-5.1); Sodium Level 131 mmol/L (133-145); Total Bilirubin 0.88 mg/dL (0.00-1.30)
--- NOTE | 2024-10-16 09:04 | CON.PCM.CC_ITS ---
HPI Consult Data Date of Consult: 10/16/24 HPI Narrative Reason for Consultation: Septic shock HPI Narrative: OSCAR DAVID, is a 74yo who presents with CC of 2 weeks of weakness and fatigue. Chills but denies fever. No night sweats. Hypothermic on presentation. Lives with sister, goes to wound care clinic for wounds POA. However, outreach to wound clinic returns no record of visitation. Patient overall, poor historian but states she has not been eating well due to poor appetite. BMI 22. Collateral sources of HPI include on site staff. 10/16 - family has limited ability to place CVC, norepinephrine up to 10mcg/min despite 5L IVF resuscitation. Current Abx are vancomycin and Zosyn. BP 109/62 on the above NE level. [facility] Medical History Hypothyroidism Chronic acquired lymphedema Chronic anemia History of primary IgA nephropathy Chronic kidney disease, stage 3b Chronic ITP (idiopathic thrombocytopenia) History of CVA (cerebrovascular accident) HLD (hyperlipidemia) HTN (hypertension) Home Medications ?Medication ?Instructions ?Recorded ?Last Taken ?Type atorvastatin 40 mg tablet 40 mg PO DAILY 10/15/24 Unkn own History bisacodyl 5 mg tablet 5 mg PO QHS 10/15/24 Unknown History doxazosin 4 mg tablet 4 mg PO QHS 10/15/24 Unknown History furosemide 40 mg tablet 40 mg PO DAILY 10/15/24 Unkn own History levothyroxine 200 mcg tablet 200 mcg PO DAILY 10/15/24 Unknown History metoprolol tartrate 100 mg tablet 100 mg PO BID Unknown History Allergy/AdvReac Type Severity Reaction Status Date / Time adhesive Allergy Mild Rash Verified 10/15/24 11:00 tramadol AdvReac Mild Nausea Verified 10/15/24 11:00 acetaminophen (From Tylenol) AdvReac Nausea Verified 10/15/24 11:00 ampicillin AdvReac Nausea Verified 10/15/24 11:00 Fish Containing Products AdvReac PT UNSURE Verified 10/15/24 11:00 OF REACTION morphine AdvReac Nausea Verified 10/15/24 11:00 peanut (peanuts) AdvReac PT UNSURE Verified 10/15/24 11:02 OF REACTION silver sulfadiazine AdvReac Nausea Verified 10/15/24 11:00 Family History Mother CVA (cerebral vascular accident) Hypertension Father No problems noted. Surgical History History of surgery on lower extremity Previous back surgery Social History household members: family and other details: Lives with her sister. Smoking Status: Never smoker alcohol intake: never substance use type: does not use additional social history: Uses walker baseline. ROS Constitutional Constitutional: Reports chills Eyes Eyes: Denies blurry vision, change in vision or loss of vision ENT HEENT: Denies dizziness, dysphagia, epistaxis, headache(s), hoarseness, loss taste/smell, nasal congestion, nasal discharge or sore throat Cardiovascular Cardiovascular: Denies chest pain, claudication, dizziness, dyspnea, edema, irregular heart rhythm or lightheadedness Respiratory/Chest Respiratory/Chest: Denies chest tightness, cough, dyspnea, hemoptysis, non-rest sleep EDS, pain on inspiration, shortness of breath with exertion, snoring, wheezing or witnessed apneas Gastrointestinal Gastrointestinal: Denies abdominal pain, diarrhea, dyspepsia, dysphagia, heartburn, hematochezia, melena, nausea or vomiting Genitourinary Genitourinary: Denies difficulty urinating, dysuria, flank pain, hematuria, polyuria or urinary frequency Musculoskeletal Musculoskeletal: Denies arthralgias, back pain or joint pain Integumentary Integumentary: Reports wounds Neurologic Neurologic: Denies abnormal gait, abnormal speech, confusion, focal weakness, loss of vision, seizure-like activity or syncope Psychiatric Psychiatric: Denies anxiety, depression, hallucinations, homicidal ideation, panic attacks or suicidal thoughts Endocrine Endocrinology: Denies fatigue, polydipsia or polyuria Hematologic/Lymphatic Hematologic/Lymphatic: Denies easy bleeding or easy bruising Allergic/Immunologic Allergic/Immunologic: Denies systems reviewed and no addt'l complaints, except as documented, as per HPI, none, GI upset w/certain foods, itchy eyes, lip swelling, seasonal rhinorrhea, rhinitis, throat swelling, tongue swelling, hives, urticaria, eczemia, wheezing, asthma or other Objective Data Objective Data Vital Signs: Vital Signs Last response 3 Temperature 36.7 C 10/16/24 07:00 Temperature Source Core 10/16/24 07:00 Pulse Rate 57 L 10/16/24 07:00 Respiratory Rate 13 10/16/24 07:00 Respiratory Effort Normal, Non-Labored 10/16/24 04:00 Respiratory Depth Normal 10/16/24 04:00 Respiratory Pattern Normal 10/16/24 04:00 Blood Pressure 86/47 L 10/16/24 07:00 Blood Pressure Mean 60 10/16/24 07:00 Blood Pressure Source Monitor 10/16/24 07:00 Blood Pressure Position Semi-Fowlers 10/16/24 07:00 Blood Pressure Location Right Arm 10/16/24 07:00 Pulse Ox 96 10/16/24 07:00 Oxygen Delivery Method Room Air 10/16/24 07:45 I&O: I&O Last 24 Hours 3 10/15/24 10/15/24 10/16/24 11:59 23:59 11:59 Intake Total 500 / 6581.85 5943.05 / 6581.85 1440.4 / 1440.4 Output Total 120 / 120 300 / 300 Balance 500 / 6461.85 5823.05 / 6461.85 1140.4 / 1140.4 I&O: Total Stay 3 10/15/24 10:49 thru 10/16/24 07:00 Intake Total 7883.45 Output Total 420 Balance 7463.45 Current Meds Ordered / Administered: Current meds ordered / Administered 3 Generic Name Dose Route Start Last Admin Trade Name Freq PRN Reason Stop Dose Admin Acetaminophen 650 mg 10/15/24 19:18 Acetaminophen 325 Mg Tablet PO Q4H PRN PRN Fever, pain 1-10/10 Acetaminophen 650 mg 10/15/24 19:18 Acetaminophen 650 Mg Suppository RC Q4H PRN PRN Fever, pain 1-10 Al Hydroxide/Mg Hydroxide 30 ml 10/15/24 19:18 Mag Hydrox/Al Hydrox/Simeth 30 Ml Udc PO Q6H PRN PRN Gastric Burning Albuterol Sulfate 2.5 mg 10/15/24 19:18 Albuterol 2.5 Mg/3 Ml Vial.Neb. INHALATION Q2H PRN PRN Dyspnea, wheezing Atorvastatin Calcium 40 mg 10/16/24 10:00 Atorvastatin Calcium 40 Mg Tablet PO DAILY MADINA Bisacodyl 5 mg 10/15/24 22:00 04/18/25 22:17 Bisacodyl 5 Mg Tablet PO 5 mg QHS MADINA Administration Calamine/Phenol 1 applic 10/15/24 19:18 10/15/24 22:16 Menthol/Lanolin/Calamine/Znox 113 Gm Tube TOPICAL 1 applic 4X/DAY MADINA Administration Protocol Fentanyl Citrate 25 mcg 10/16/24 01:10 10/16/24 01:25 Fentanyl 100 Mcg/2 Ml Ampul IV 25 mcg Q3H PRN PRN Administration Pain Score 6-10 Guaifenesin 10 ml 10/15/24 19:18 Guaifenesin 10 Ml Udc (200mg/10ml) PO Q4H PRN PRN COUGH Heparin Sodium (Porcine) 5,000 unit 10/15/24 22:00 10/15/24 22:17 Heparin Injection (Vial) 5,000 Unit/Ml Vial SC 5,000 unit Q12 MADINA Administration Piperacillin Sod/Tazobactam 50 mls @ 12.5 mls/hr 10/15/24 22:00 10/16/24 06:21 Sod 3.375 gm/ Sodium Chloride IV 12.5 mls/hr Q8 MADINA Administration Vancomycin IV-PHARMACY TO DOSE 500 mls @ 250 mls/hr 10/15/24 19:18 1 each/ Sodium Chloride IV X1 PRN Rx to Dose Protocol Norepinephrine Bitartrate 8 mg 250 mls @ 9.375 mls/hr 10/15/24 19:18 10/16/24 07:00 / Sodium Chloride CONT INF 10 mcg/min .[id number] MADINA 18.8 mls/hr Titration Protocol 5 MCG/MIN Sodium Chloride 100 mls @ 15 mls/hr 10/15/24 19:19 IV .Q6H40M PRN Saline Flush Sodium Chloride 100 mls @ 15 mls/hr 10/15/24 19:19 IV .Q6H40M PRN Additional IVPB Infusion Levothyroxine Sodium 200 mcg 10/16/24 06:00 10/16/24 06:23 Levothyroxine 100 Mcg Tablet PO 200 mcg DAILY@0600 [facility] Administration Melatonin 3 mg 10/15/24 19:18 Melatonin 3 Mg Tablet PO QHS PRN PRN INSOMNIA Midodrine 5 mg 10/16/24 08:00 Midodrine Hcl 5 Mg Tablet PO TIDCM [facility] Ondansetron HCl 4 mg 10/15/24 19:18 Ondansetron 4 Mg/2 Ml Vial IV Q8H PRN PRN NAUSEA/VOMITING Oxycodone HCl 5 mg 10/16/24 01:10 Oxycodone 5 Mg Tablet PO Q4H PRN PRN Pain Score 4-10 Prochlorperazine Edisylate 5 mg 10/15/24 19:18 Prochlorperazine 10 Mg/2 Ml Vial IV Q4H PRN PRN Breakthrough Nausea/Vomiting Senna/Docusate Sodium 2 tablet 10/15/24 19:18 Senna/Docusate Sodium 1 Tablet PO BID PRN PRN Constipation Sodium Chloride 10 - 40 ml 10/15/24 19:19 0.9% Saline Lock 10 Ml Syringe IV UD PRN SALINE FLUSH Vancomycin Protocol 1 lab 10/16/24 16:00 Vancomycin Trough/Random Due MC 10/16/24 18:00 DAILY [facility] Physical Exam Const alert, oriented x3 and no apparent distress General Appearance: cooperative, ill appearing and frail HEENT normocephalic and head/scalp atraumatic HEENT Narrative: Dry Eyes PERRL, EOMs intact bilaterally, conjunctivae normal and no scleral icterus Neck no JVD Chest inspection of chest normal Resp normal respiratory effort and no use of accessory muscles Effort and Inspection: able to speak in complete sentences Auscultation: clear to auscultation bilaterally Cardio regular rate and regular rhythm GI normal to inspection, nondistended, normoactive bowel sounds no CVA tenderness Back/Spine no CVA tenderness Extremity no clubbing, cyanosis or edema Skin General Skin Exam: venous stasis Wound Narrative: multiple, varying levels of injury Neuro oriented x3 and CN's II-XII intact bilaterally Psych cooperative Lab / Micro Data Attestation: I reviewed the patient's lab results. 10/16/24 06:50 10/16/24 06:50 Labs: Laboratory Results - last 24 hr 10/15/24 11:35: WBC 9.9, RBC 4.84, Hgb 14.4, Hct 40.9, MCV 84.5, MCH 29.8, MCHC 35.2, RDW Std Deviation 47.4 H, RDW Coeff of Job 15.5 H, Plt Count 70 L, MPV 11.1, Immature Gran % (Auto) 0.600, Neut % (Auto) 71.7 H, Lymph % (Auto) 18.6 L, Edgar % (Auto) 8.4, Eos % (Auto) 0.5, Baso % (Auto) 0.2, Absolute Neuts (auto) 7.1, Absolute Lymphs (auto) 1.84, Nucleated RBC % 0, ESR < 1, PT 19.1 H, INR 1.6, APTT 44.8 H, Sodium 130 L, Potassium 4.5, Chloride 103, Carbon Dioxide 15.6 L, Anion Gap 11, BUN 94 H, Creatinine 2.92 H, Estim Creat Clear Calc 17.17 L, E st GFR (MDRD) Non-Af 16 L, BUN/Creatinine Ratio 32.1 H, Glucose 128 H, Lactic Acid 3.2 H*, Calcium 6.3 L*, Total Bilirubin 0.79, AST 37 H, ALT 23, Alkaline Phosphatase 89, Troponin T High Sens 40 H, Total Protein 3.3 L, Albumin 1.8 L, G lobulin 1.5 L, Albumin/Globulin Ratio 1.2 10/15/24 12:00: Urine Color Yellow, Urine Clarity Sl. Cloudy, Urine pH 5.0, Ur Specific [place] 1.020, Urine Protein TNP, Urine Glucose (UA) Normal, Urine Ketones Negative, Urine Occult Blood 250 H, Urine Nitrite Negative, Urine Bilirubin 1 H, Urine Urobilinogen Normal, Ur Leukocyte Esterase 25 H, Urine RBC 10-25 SEEN, Urine WBC 0-5 SEEN, Ur Squamous Epith Cells 0-5 SEEN, Urine Bacteria 0 SEEN, Hyaline Casts 25-50 SEEN, Fine Granular Casts 0-5 SEEN, Urine Mucus 0 SEEN, U Random Total Protein 22.0 H 10/15/24 13:30: Phosphorus 5.3 H, Magnesium 2.3 H, Troponin T Hi Sens 2 Hr 41 H, C-React Prot Ext Range 20.30 H 10/15/24 16:32: Lactic Acid 2.1 H*, Troponin T Hi Sens 4Hr 35 H 10/15/24 20:10: Ionized Calcium 0.95 L, Vitamin D 25-Hydroxy 44.0, Procalcitonin 0.08, PTH Intact 21 10/15/24 22:47: Lactic Acid 1.6 10/16/24 06:50: WBC 12.7 H, RBC 5.10, Hgb 15.0, Hct 43.8, MCV 85.9, MCH 29.4, MCHC 34.2, RDW Std Deviation 49.0 H, RDW Coeff of Job 15.8 H, Plt Count 78 L, MPV 9.5, Immature Gran % (Auto) 0.500, Neut % (Auto) 71.9 H, Lymph % (Auto) 17.8 L, Edgar % (Auto) 8.6, Eos % (Auto) 1.0, Baso % (Auto) 0.2, Absolute Neuts (auto) 9.2 H, Absolute Lymphs (auto) 2.27, Nucleated RBC % 0, Sodium 131 L, Potassium 4.9, Chloride 104, Carbon Dioxide 14.2 L, Anion Gap 13, BUN 92 H, Creatinine 2.98 H, Estim Creat Clear Calc 18.82 L, Est GFR (MDRD) Non-Af 16 L, B UN/Creatinine Ratio 30.7 H, Glucose 120 H, Hemoglobin A1c 6.6 H, Calcium 7.6, Total Bilirubin 0.88, AST 43 H, ALT 23, Alkaline Phosphatase 104, Total Protein 4.0 L, Albumin 2.0 L, Globulin 2.0 L, Albumin/Globulin Ratio 1.0 Micro: Microbiology 10/15/24 21:12 Nasal Secretion MRSA (PCR) - Final 10/15/24 21:12 Wound - Leg, Left Skin and Soft Tissue MRSA/MSSA (PCR - Preliminary Staphylococcus aureus Imaging Radiology Impression Chest X-Ray 10/15/24 11:40 IMPRESSION: No Acute Findings. Reading Location: [id number] Assessment and Plan . Assessment and plan: ICU Problem LIst: Septic shock Soft tissue infection Wounds Moderate to severe protein calorie malnutrition Plan Vanc and zosyn appropriate coverage for GPC and GNR at this time Consider addition of clindamycin for synergy against endotoxin given shock, but given frailty, may also consider deferring for risk of C diff Addition of PO midodrine to reduce peripheral NE levels If prolonged need for high dose NE, will add hydrocortisone 50mg IV q8h Pneumatic Systems Operator/time study clerk consultation for severe protein calorie malnutrition [id number] Ender Holt MD PCCM [facility] Critical Care Time: 60 min The entirety of this encounter was done via Telemedicine
[2024-10-16] MEDS: Menthol/Lanolin/Calamine/Znox 113 GM Tube 1 APPLIC TOPICAL ×2 (09:14→21:23)
[2024-10-16] MEDS: Atorvastatin Calcium 40 MG Tablet PO (09:14)
[2024-10-16] MEDS: Midodrine HCl 5 MG Tablet PO ×3 (09:14→16:32)
[2024-10-16] MEDS: Heparin Injection (Vial) 5,000 UNIT/ML VIAL 5000 UNIT SC (09:14)
[2024-10-16] MEDS: Norepinephrine 8 MG in 0.9% Normal Saline (250mL Bag) 242 ML 18.8 MG CONT INF (10:00)
[2024-10-16] MEDS: oxyCODONE 5 MG Tablet PO ×2 (10:24→22:39)
--- NOTE | 2024-10-16 14:50 | CASEMGMT ---
RN REFUGIO Assessment Face to Face with patient for initial transition planning/care coordination assessment. RN REFUGIO introduced self and role at [facility], pt voices understanding. Pt is A&Ox4 and is resting comfortably in bed and is calm. Pt sister at bedside (Alaina). Care providers, pharmacy, and demographics verified. Admitting dx: Sepsis, Cellulitis, KATTY PCP: Sussy Nelson Specialists: Claudia (Surgery Specialist in [place]), [facility] Insurance: [employer] Prescription Benefit: Yes LNOK: Debbie Almonte (Nephew), Alaina Parra (Sister) Living Arrangements: Pt lives with her sister, [id number], and 37 y/o niece in a 3 story home witha FFSU and 2 steps to enter ADLs/IADLs: Pt family assists with caring for the pt Transportation: Pt family hires drivers for the pt DME: Medical alert system resources provided. Pt has a rollator, W/C, and wound supplies from [facility]. HHC/SNF/Wound care: Pt states that she has been to 3 wound healing centers and states that she does not want to go to another wound center. Pt denies SNF or HHC history. Pt states that her family helps care for her wounds at home. Pt?s goal: home Plan: Anticipate home with skilled HHC to help promote wound healing. At this time, the pt denies SNF. Pt states that she wants to return home at the time of DC and reports that she may be interested in skilled HHC. PT/OT held today d/t pt medically unstable. CM to follow up on Friday regarding HHC and further DC needs. Pt denies further questions or concerns at this time.
[2024-10-16] MEDS: Clindamycin 600 MG/50 ML BAG 100 MG IV ×2 (15:54→21:48)
[2024-10-16] MEDS: Lactobacillis Acidophilus 1 CAP PO ×2 (15:55→21:48)
[2024-10-16] MEDS: HEPARIN/D5w 25,000 UNITS 25,000 UNITS/250 ML IV.SOLN. 9 UNITS CONT INF (16:28)
[2024-10-16] MEDS: 0.9% Saline Lock 10 ML Syringe IV ×2 (21:23→21:51)
[2024-10-16] MEDS: Bisacodyl 5 MG Tablet PO (21:48)
[2024-10-16 23:25] LABS: 24HR UR TOTAL VOLUME 450 ml; Calcium Urine pH Range 2
[2024-10-16 23:57] LABS: Partial Thromboplast Time > 200.0 Seconds (24.1-36.2)
[2024-10-17] VITALS (22 sets, daily range): BP systolic 74–119; BP diastolic 48–60; PULSE 62–78; RESP 10–19; TEMP 36.4–36.8; O2SAT 94–97; BMI 23.9
[2024-10-17 00:24] LABS: (24 HR) Urine Calcium 10.4 mg/24 HR (42.0-353.0); Urine Calcium (Random) 2.3 mg/dL (Not Estab.)
[2024-10-17] MEDS: 0.9% Saline Lock 10 ML Syringe IV ×2 (00:38→21:30)
[2024-10-17] MEDS: Ondansetron 4 MG/2 ML Vial IV (00:38)
[2024-10-17] MEDS: proCHLORPERazine 10 MG/2 ML Vial 5 MG IV (05:04)
[2024-10-17] MEDS: Clindamycin 600 MG/50 ML BAG 100 MG IV (05:05)
[2024-10-17 06:01] LABS: Absolute Lymphocyte Count 2.19 X10^3/uL (0.83-4.51); Absolute Neutrophil Count 10.3 X10^3/uL (2.0-7.7); Basophil# 0.04 X10^3/uL; Basophil% 0.3 % (0-1); Eosinophil# 0.17 X10^3/uL; Eosinophils% 1.2 % (0-5); Hematocrit 43.8 % (37-47); Hemoglobin 15.2 g/dL (12.0-15.0); Lymphocyte # 2.19 X10^3/ul (0.83-4.51); Mean Corp Hgb Conc 34.7 g/dL (32-36); Mean Corpuscular Hgb 29.7 pg (27.0-32.0); Mean Corpuscular Volume 85.7 fL (81-99); Mean Platelet Vol. 9.3 fl (6.2-12.0); Monocyte# 0.91 X10^3/uL; Monocyte% 6.7 % (0-10); NRBC Flagged by Analyzer 0 % (0-5); Neutrophil # 10.27 X10^3/uL (2.7-7.7); Neutrophil % 75.1 % (47-70); POSITIVE COUNT YES; Platelet Count 86 K/mm3 (150-450); Red Blood Count 5.11 M/mm3 (4.2-5.4); White Blood Count 13.7 K/mm3 (4.4-11.0)
[2024-10-17 06:52] LABS: Anion Gap 14 (5-15); BUN 95 mg/dL (4-19); BUN/Creat Ratio 29.8 RATIO (10-20); Chloride 104 mmol/L (98-108); Creatinine, Serum 3.17 mg/dL (0.70-1.20); EST Glomerular Filtration Rate 15 (>60); Glucose 145 mg/dL (70-99); Potassium 4.9 mmol/L (3.3-5.1); Sodium Level 131 mmol/L (133-145)
--- NOTE | 2024-10-17 07:21 | PN.HOSP_ITS ---
Reason for Visit Reason for Visit: Diagnoses Sepsis, unspecified organism (10/15/24) Cellulitis, unspecified (10/15/24) Acute kidney failure, unspecified (10/15/24) Objective Data Objective Data Vital Signs: Vital Signs Temp Pulse Resp BP Pulse Ox O2 Del Method 97.5 F L 64 12 110/60 95 Room Air 10/17/24 05:00 10/17/24 07:00 10/17/24 07:00 10/17/24 07:00 10/17/24 07:00 10/17/24 07:00 Oxygen Delivery Method Room Air Weight: 180 lb 12.8 oz Body Mass Index (BMI) 23.9 Intake & Output: Intake and Output for Last 24 Hours 10/15/24 10/16/24 10/17/24 23:59 23:59 23:59 Intake Total 6443.05 / 6581.85 1768.65 / 1778.05 279.2 / 279.2 Output Total 120 / 120 775 / 1220 495 / 495 Balance 6323.05 / 6461.85 993.65 / 558.05 -215.8 / -215.8 Medical Nutrition Assessment Dietitian: Malnutrition Criteria Met Start: 10/16/24 15:25 Freq: Status: Active Protocol: Document 10/16/24 15:25 CATHY (Rec: 10/16/24 15: CATHY [id number]) Nutrition Malnutrition Evidence of Yes Malnutrition Exists Malnutrition (severe Acute Illness/Injury ): Evidenced By Suboptimal Energy Intake (Severe),Physical Changes ( Moderate),Physical Changes (Severe) Clinical Problem Acute Disease or Injury Related Malnutrition Etiology related to decreased appetite and oral intakes Signs/Symptoms as evidenced by oral intakes for the past two weeks meeting less than 25% of estimated nutrient needs and NFPA indicating moderate to severe muscle and fat loss (temples, clavicles, deltoids, buccal, etc.). Status Active Problem Recommendation Dietitian Recommend continuing Cardiac - Heart Healthy diet to Recommendations/ aid in management of edema. Will order Magic Cup with Changes lunch and a milkshake with dinner to help increase oral intakes. If intakes remain poor, may also try fortified foods. Lab / Micro Data 10/17/24 05:35 10/17/24 05:35 Labs: Laboratory Results - last 24 hr 10/16/24 06:50: Sodium 131 L, Potassium 4.9, Chloride 104, Carbon Dioxide 14.2 L , Anion Gap 13, BUN 92 H, Creatinine 2.98 H, Estim Creat Clear Calc 18.82 L, Est GFR (MDRD) Non-Af 16 L, BUN/Creatinine Ratio 30.7 H, Glucose 120 H, Hemoglobin A1c 6.6 H, Calcium 7.6, Total Bilirubin 0.88, AST 43 H, ALT 23, Alkaline Phosphatase 104, Total Protein 4.0 L, Albumin 2.0 L, Globulin 2.0 L, Albumin/Globulin Ratio 1.0 10/16/24 22:00: Urine pH 2, Ur Random Calcium Cancelled, Urine Collection Time 24.0, Urine Total Volume 450, Urine Calcium 2.3, Ur Calcium 24 Hr 10.4 L 10/16/24 22:49: APTT Cancelled 10/16/24 23:21: APTT > 200.0 H* 10/17/24 05:35: WBC 13.7 H, RBC 5.11, Hgb 15.2 H, Hct 43.8, MCV 85.7, MCH 29.7, MCHC 34.7, RDW Std Deviation 50.0 H, RDW Coeff of Job 16.0 H, Plt Count 86 L, MPV 9.3, Immature Gran % (Auto) 0.700, Neut % (Auto) 75.1 H, Lymph % (Auto) 16.0 L, Sutter % (Auto) 6.7, Eos % (Auto) 1.2, Baso % (Auto) 0.3, Absolute Neuts (auto) 10.3 H, Absolute Lymphs (auto) 2.19, Nucleated RBC % 0, Sodium 131 L, Potassium 4.9, Chloride 104, Carbon Dioxide 14.0 L, Anion Gap 14, BUN 95 H, Creatinine 3.17 H, Estim Creat Clear Calc 17.70 L, Est GFR (MDRD) Non-Af 15 L, B UN/Creatinine Ratio 29.8 H, Glucose 145 H, Calcium 8.0 Micro: Microbiology 10/15/24 11:30 Wound - Leg Gram Stain - Final 10/15/24 11:30 Wound - Leg Wound Culture - Preliminary Mixed Jewell 10/15/24 21:12 Wound - Leg, Left Gram Stain - Final 10/15/24 21:12 Wound - Leg, Left Wound Culture - Preliminary Gram negative olga GNR lactose derrick boat runner 10/15/24 21:12 Wound - Leg, Left Skin and Soft Tissue MRSA/MSSA (PCR - Final Staphylococcus aureus 10/15/24 12:00 Urine, Random Urine Culture - Preliminary Culture exhibits no growth. 10/15/24 21:12 Nasal Secretion MRSA (PCR) - Final Radiography Diagnostic Testing: Radiology Impression Venous Doppler Study 10/15/24 15:21 Interpretation Summary Acute deep vein thrombosis is noted in the right popliteal vein. Acute deep vein thrombosis is noted in the right tibio- peroneal trunk. Acute deep vein thrombosis is noted in the right posterior tibial vein. The remainder of the right lower extremity deep venous system is patent and compressible. Deep veins of the left lower extremity are patent and compressible segmentally. There is no evidence of left lower extremity deep vein thrombosis. Valvular competence appears intact within the proximal deep venous systems bilaterally. The great saphenous veins appear bilaterally patent and compressible segmentally. The left posterior tibial vein and peroneal vein were not visualized due to the presence of open wounds. Ordering Physician: Radha Machuca Referring Physician: Sussy Nelson Performed By: Jeff Farah, RVT Echocardiogram 10/15/24 19:18 Interpretation Summary Normal LV size. The left ventricular ejection fraction is 65 %. There is mild to moderate mitral annular calcification. Contrast injection was performed. Ordering Physician: Radha Machuca Referring Physician: Sussy Nelson Performed By: Bekah Hammond RDCS, RVT Physical Exam Narrative Seen and examined Patient is drowsy and lethargic. Not doing well. Does not want IV poke or PICC line. The patient has bilateral chronic lower leg wounds with seepage/drainage for about 6 months. Not very ambulatory at home. Physical General: Drowsy and lethargic. HEENT: Atraumatic, PERRLA, EOMI, Normocephalic Oral: Oral mucosa dry Neck: Supple, No JVD, Negative Carotid Bruits Chest wall/Lungs: Air entry diminished in bilateral lung bases. No crepitation/rhonchi Cardiovascular: Sinus bradycardia, Normal S1, Normal S2, No M/G/R Abdomen: Bowel Sounds Present, Soft, Non Tender, Non-Distended : No dysuria. No renal angle tenderness. No suprapubic tenderness. Extremities: Edema of left lower extremity , Capillary Refill Less than 3 Seconds Skin: Legs cold and clammy, dressing wrapped. See patient chronic wound. Contiguous area of cellulitis Musculoskeletal: No Tenderness to Palpation of Joints or Extremities Neurological: No acute focal neurological deficit. Psych/Mental Status: Flat affect. Looks sad Assessment & Plan Assessment/Plan (1) Sepsis: (2) Cellulitis: (3) KATTY (acute kidney injury): PLAN: Plan The patient is a 74 y/o F was admitted with generalized weakness getting worse over the past 11 days. Patient had open wounds in both lower extremities with erythema and drainage with subjective chills but no fever, decreased oral intake. She also had syncopal event on the toilet. #1. Septic shock most likely due to skin and soft tissue infection (source, lactic acidosis, acute kidney injury with creatinine 2.9 to, INR 1.6, platelets 70) MAP less than 65, secondary to acute bilateral lower extremity acute on chronic wounds, bilateral lower extremity contiguous cellulitis: Patient admitted in ICU. Patient had IV fluid as per sepsis protocol and then started on vasopressor norepinephrine therefore meets the criteria for septic shock. Thereafter Levophed was tapered down and started on midodrine 10 mg 3 times daily. On vancomycin and Zosyn. Clindamycin added as per pick pulling machine operator recommendation to decrease the toxin. Preliminary Gram stain of wound shows GNR, GNR lactose derrick boat runner and staph species. MRSA nasal screen negative. Continue Giacomo wrap bandage. PT and OT 10/17: After discussion with the patient and her next of kin her sister and [id number] in the ICU, they decided for DNR CC, hospice care. Hospice consult was done. Patient has [facility] care therefore inpatient hospice not possible as per hospice nurse. CODE STATUS changed to DNR CC hospice care. Patient is being transferred to [facility] for possible discharge to home with home hospice tomorrow. In meantime, antibiotic continued. After discussion with the patient and family, she does not want even PICC line. Patient also has left lower extremity below-knee DVT: She has swelling of left lower leg and both upper extremity with bruises due to IV lines and phlebotomies. She does not want labs. I have very heparin discontinued and started on low-dose Eliquis 5 mg twice daily as she will not be able to tolerate 10 mg because of severe thrombocytopenia and she is DNR CC hospice care #2. Acute kidney injury on CKD stage IIIb secondary to underlying IgA nephropathy: Sadmission BUN/Cr 94/2.92, prior baseline creatinine 12/31/2023 BMP with BUN/creatinine 23/1.39. 10/16: No change in creatinine 2.98 10/17: Further worsening of the creatinine. BUN/creat 95/3.17. #3. Acute hypocalcemia, Unclear etiology: Admission calcium 6.3, calcium gluconate ordered, will obtain ionized calcium, obtain vitamin D level (25- (OH)D, 1,25-(OH)2D), PTH, Mag, Phos, UCa levels to further assess. 10/16: Ionized calcium 0.95 low. Patient received IV calcium. Repeat calcium 7.6. Vitamin D 25-hydroxy 44. Procalcitonin normal. PTH 21. #4. Acute Syncopal Event with Indeterminate cardiac enzyme of uncertain significance: Given #1 suspect this is likely etiology in addition to hypotension, EKG in ED with sinus bradycardia with no acute evidence of ischemia, CXR w/ no acute cardiopulmonary finding, initial trop 40. Will maintain on a monitored bed to assure no acute myocardial infarction with serial cardiac enzymes and EKGs. Magnesium level requested. Echocardiogram requested. Orthostatics requested. Will maintain on fall precautions. #5. Acute hyponatremia, suspect primarily hypovolemic component with sepsis, poor intake: Admission sodium 130, chloride however 103, will continue hydration as noted, repeat CMP in AM. 10/16: Sodium is 131 no significant 10/17: No significant change in sodium. Remains 131 #6. Chronic thrombocytopenia, history ITP: Admission platelet 70, unfortunately baseline from her labs noted an admission at [facility] 11/2023 platelets 51, most recent labs noting 12/31/2023 platelets 35, appear to vacillate, will continue to closely trend CBC. Very cautiously using heparin chemoprophylaxis as noted, will hold if drops platelets. 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 Styles 10/16: Platelet count is 78,000 10/17: Platelet count 86K. #7. History CVA: Per discussion not necessarily on aspirin therapy because of ITP/thrombocytopenic history continue statin, #8. Chronic normocytic anemia: Admission hemoglobin 14.4, MCV 84.5 at baseline records indicate previous baseline 11. Hemoglobin 15/43.8 #9. Hypertension: Given current presentation as noted #1, holding all hypertensive regimen, add back once clinically appropriate. #10. Hypothyroidism: continue patient on levothyroxine regimen, TSH requested. #11. Hyperlipidemia: continue patient on statin therapy. #12. DVT prophylaxis: Heparin cautiously given underlying ITP/chronic thrombocytopenia. #13. CODE status: Patient notes that her medical decision-maker is her sister who is present. She does not have formal healthcare power of casing tester or living will in place. Discussed CODE status at length including difference between FULL code, DNR-CCA and DNR-CC status. Following discussions about the differences in these status, requested DNR-CCA, no intubation. Also discussed at length concept of a central line and pressor therapy usage. Patient and sister declined central line and would only be willing to use transient pressor therapy up to the maximum dose allowed peripherally. Charges/Coding Addendum Addendum: Living will/advanced directive/end of life care: Patient does not have living will or advanced directive. Her next of kin is her sister. After discussion of benefits/risks procedures involved with full code, DNR CC arrest and DNR CC, the patient and her next of kin Sister, CODE STATUS changed from DNR CC no intubation to DNR CC hospice. They wanted hospice care therefore hospice was consulted. Patient doesn't want artificial life support including intubation, tube feed, ventilator and/chest compression, central venous catheter, PICC line, vasopressor and DC shock if needed Total time spent in [id number] encounter in discussion of advanced directive 17 minutes. Visit Charges Inpatient E&M: 56064 Subs Hosp L3 Procedures Hospitalists Procedures: 48412 Advncd Care Plan 30 Min
--- NOTE | 2024-10-17 08:56 | NURSING ---
lengthy discussion on POC and prognosis, patient stated I dont want anything aggressive and no more sticks, if [facility] is ready to take me then I am ready. Explained code status currently vs DNRCC/hospice referral. Patient agreeable to hospice referral and requested this RN to also talk with patient's sister, Sadaf. This RN made Dr. aSlter aware. This RN and Dr. Salter spoke with sister, Sadaf, who voiced understanding of DNRCC code status change and hospice referral.
--- NOTE | 2024-10-17 08:59 | NURSING ---
[facility] hospice referral called at this time
--- NOTE | 2024-10-17 10:38 | NURSING ---
Latasha RN from [facility] hospice arrived
--- NOTE | 2024-10-17 11:15 | NURSING ---
levophed shows complete on MAR, some still left in bag. 1115 paused.
--- NOTE | 2024-10-17 12:38 | NURSING ---
report given to BENSON Frazier on Med Surg who will resume care when patient moves out of ICU
[2024-10-17] MEDS: oxyCODONE 5 MG Tablet PO ×2 (12:47→21:37)
[2024-10-17] MEDS: Midodrine HCl 5 MG Tablet 10 MG PO (16:29)
[2024-10-17] MEDS: Menthol/Lanolin/Calamine/Znox 113 GM Tube 1 APPLIC TOPICAL (21:15)
[2024-10-17] MEDS: APIXABAN 5 MG TABLET PO (21:18)
[2024-10-17] MEDS: Bisacodyl 5 MG Tablet PO (21:18)
[2024-10-17] MEDS: Doxycycline 100 MG CAPSULE PO (21:18)
[2024-10-17] MEDS: MELATONIN 3 MG TABLET PO (21:27)
[2024-10-17] MEDS: Piperacil/Tazobactam 3.375 GM in 0.9% Normal Saline (50mL MB+) 50 ML IV (21:30)
[2024-10-17] MEDS: 0.9% Normal Saline (100mL Bag) 100 ML 15 ML IV (21:30)
[2024-10-18 05:07] VITALS: BP 85/48; PULSE 80; RESP 16; TEMP 36.8; O2SAT 97
[2024-10-18] MEDS: Midodrine HCl 5 MG Tablet 10 MG PO (08:52)
[2024-10-18] MEDS: APIXABAN 5 MG TABLET PO (08:53)
--- NOTE | 2024-10-18 08:54 | DCINST_ITS ---
Discharge Instructions Diet Discharge Diet: No restrictions DC O2, CPAP, BIPAP needs Home O2 Discharge instructions: No Dressing / Incision Discharge Activity: Return to Normal Activity Weight Bearing Status: Weight bearing as tolerated Dressing / Incision Call your doctor if you observe: Uncontrolled pain and - (home hospice, call hospice lelo) Follow Up Care When: IN 2 WEEKS Test Results: Test results from this visit will be discussed in further detail at your follow- up appointment, if applicable. Discharge Plan Admission Admit Date/Time: 10/15/24 14:42 Primary Reason for Your Visit: Septic shock Attending Provider: Deangelo Salter Primary Care Provider: Sussy Nelson Consulting Providers: Radha Machuca; Aly Urias; Brayan Rosas; Toy Arriaga; Ronal Becerra; Faustino Mchugh; Timo Loyd; John Cui; Erwin Aviles; Yajaira Rodriguez; Dwayne Esquivel; Chava Arellano; Ender Holt; Anna Candelaria; Poonam Quiñones; Portia Crocker; Oscar Hernandez; Andres Mirza; Yonas Fowler; Corbin Cortes; Isiah Alejo; Mayelin Lovelace; Jose Lomeli; Domingo Hurd; Pedrito Christie; Goyo Finley Discharge Orders/Prescriptions Prescriptions: New sennosides-docusate sodium [Stimulant Laxative Plus] 8.6-50 mg Tablet 2 tab PO BID PRN PRN (Reason: Constipation) Qty: 0 0RF midodrine 5 mg Tablet 10 mg PO TIDCM 30 Days Qty: 180 0RF doxycycline monohydrate 100 mg Capsule 100 mg PO BID 7 Days Qty: 14 0RF Eliquis 5 mg Tablet 5 mg PO BID 30 Days Qty: 60 2RF cephalexin 250 mg capsule 250 mg PO Q8H 7 Days Qty: 21 0RF Continued atorvastatin 40 mg tablet 40 mg PO DAILY metoprolol tartrate 100 mg tablet 100 mg PO BID doxazosin 4 mg tablet 4 mg PO QHS levothyroxine 200 mcg tablet 200 mcg PO DAILY bisacodyl 5 mg tablet 5 mg PO QHS Discontinued furosemide 40 mg tablet 40 mg PO DAILY Referrals / Follow Up: Sussy Nelson MD [Primary Care Provider] - Jose Alejandro Lewis DO [Non-Staff] - Disposition Disposition (needs filled in before D/C Order can be placed): Home, Self Care
--- NOTE | 2024-10-18 09:29 | PCM.DC.SUM ---
Providers Date of Admission: 10/15/24 Date of Discharge: 10/18/24 Primary Care Physician: Dr. Sussy Nelson MD Consultations 10/15/24 19:18 Consult: Associate Sales Representative / Pulmonary Medicine Routine Consulting Provider: Intensivists/Pulmonary Med Reason for Consult: Sepsis, BL LE cellulitis/wounds EMERGENT Consult: No Notified: Yes Date Notified: 10/15/24 Time Notified: 15:15 Method of Notification: Text Consult: Nephrology Routine Consulting Provider: Goyo Finley Reason for Consult: KATTY on CKD EMERGENT Consult: No Notified: Yes Date Notified: 10/15/24 Time Notified: 15:15 Method of Notification: Answering Service Consult: Onc/Wound/refrigerator repair technician Routine Comment: Reason for Consult:: BL LE wounds 10/17/24 07:23 Consult: Infectious Disease Routine Consulting Provider: Aly Urias Reason for Consult: b/l LE ulcer and cellulitis, growing bacteria EMERGENT Consult: No Notified: Yes Date Notified: 10/17/24 Time Notified: 07:24 Method of Notification: Text Reason For Visit: SEPSIS, CELLULITIS, KATTY Diagnosis Discharge Diagnosis (1) Sepsis: Status: Acute Code(s): A41.9 - Sepsis, unspecified organism (2) Cellulitis: Status: Acute Code(s): L03.90 - Cellulitis, unspecified (3) KATTY (acute kidney injury): Status: Acute Code(s): N17.9 - Acute kidney failure, unspecified Plan The patient is a 74 y/o F was admitted with generalized weakness getting worse over the past 11 days. Patient had open wounds in both lower extremities with erythema and drainage with subjective chills but no fever, decreased oral intake. She also had syncopal event on the toilet. #1. Septic shock most likely due to skin and soft tissue infection (source, lactic acidosis, acute kidney injury with creatinine 2.9 to, INR 1.6, platelets 70) MAP less than 65, secondary to acute bilateral lower extremity acute on chronic wounds, bilateral lower extremity contiguous cellulitis: Patient admitted in ICU. Patient had IV fluid as per sepsis protocol and then started on vasopressor norepinephrine therefore meets the criteria for septic shock. Thereafter Levophed was tapered down and started on midodrine 10 mg 3 times daily. On vancomycin and Zosyn. Clindamycin added as per manager of warehouse recommendation to decrease the toxin. Preliminary Gram stain of wound shows GNR, GNR lactose addressograph operator and staph species. MRSA nasal screen negative. Continue Giacomo wrap bandage. PT and OT 10/17: After discussion with the patient and her next of kin her sister and [id number] in the ICU, they decided for DNR CC, hospice care. Hospice consult was done. Patient has [facility] care therefore inpatient hospice not possible as per hospice nurse. CODE STATUS changed to DNR CC hospice care. Patient is being transferred to [facility] for possible discharge to home with home hospice tomorrow. In meantime, antibiotic continued. After discussion with the patient and family, she does not want even PICC line. 10/18: Yesterday after the discussion with the patient and the family with the hospice nurse, they decided for home hospice. Patient insurance does not cover for inpatient hospice. Patient is discharged home after discussion with the case consultant on antibiotics Keflex, doxycycline and Eliquis. I talked to the patient's other sister and niece in the room and explained about my discharge planning antibiotics and Eliquis. Patient was instructed to stop Eliquis at the first instance of bleeding complication including hematuria, GI bleed/hematochezia or melena or hemoptysis. Patient also has left lower extremity below-knee DVT: She has swelling of left lower leg and both upper extremity with bruises due to IV lines and phlebotomies. She does not want labs. I have very heparin discontinued and started on low-dose Eliquis 5 mg twice daily as she will not be able to tolerate 10 mg because of severe thrombocytopenia and she is DNR CC hospice care #2. Acute kidney injury on CKD stage IIIb secondary to underlying IgA nephropathy: Sadmission BUN/Cr 94/2.92, prior baseline creatinine 12/31/2023 BMP with BUN/creatinine 23/1.39. 10/16: No change in creatinine 2.98 10/17: Further worsening of the creatinine. BUN/creat 95/3.17. 10/18: No labs today. Patient is hospice. #3. Acute hypocalcemia, Unclear etiology: Admission calcium 6.3, calcium gluconate ordered, will obtain ionized calcium, obtain vitamin D level (25-(OH)D, 1,25-(OH)2D), PTH, Mag, Phos, UCa levels to further assess. 10/16: Ionized calcium 0.95 low. Patient received IV calcium. Repeat calcium 7.6. Vitamin D 25-hydroxy 44. Procalcitonin normal. PTH 21. #4. Acute Syncopal Event with Indeterminate cardiac enzyme of uncertain significance: Given #1 suspect this is likely etiology in addition to hypotension, EKG in ED with sinus bradycardia with no acute evidence of ischemia, CXR w/ no acute cardiopulmonary finding, initial trop 40. Will maintain on a monitored bed to assure no acute myocardial infarction with serial cardiac enzymes and EKGs. Magnesium level requested. Echocardiogram requested. Orthostatics requested. Will maintain on fall precautions. #5. Acute hyponatremia, suspect primarily hypovolemic component with sepsis, poor intake: Admission sodium 130, chloride however 103, will continue hydration as noted, repeat CMP in AM. 10/16: Sodium is 131 no significant 10/17: No significant change in sodium. Remains 131 #6. Chronic thrombocytopenia, history ITP: Admission platelet 70, unfortunately baseline from her labs noted an admission at [facility] 11/2023 platelets 51, most recent labs noting 12/31/2023 platelets 35, appear to vacillate, will continue to closely trend CBC. Very cautiously using heparin chemoprophylaxis as noted, will hold if drops platelets. Patient follows food service driver Dr. Styles 10/16: Platelet count is 78,000 10/17: Platelet count 86K. #7. History CVA: Per discussion not necessarily on aspirin therapy because of ITP/thrombocytopenic history continue statin, #8. Chronic normocytic anemia: Admission hemoglobin 14.4, MCV 84.5 at baseline records indicate previous baseline 11. Hemoglobin 15/43.8 #9. Hypertension: Given current presentation as noted #1, holding all hypertensive regimen, add back once clinically appropriate. #10. Hypothyroidism: continue patient on levothyroxine regimen, TSH requested. #11. Hyperlipidemia: continue patient on statin therapy. #12. DVT prophylaxis: Heparin cautiously given underlying ITP/chronic thrombocytopenia. #13. CODE status: Patient notes that her medical decision-maker is her sister who is present. She does not have formal healthcare power of a p manager or living will in place. Discussed CODE status at length including difference between FULL code, DNR-CCA and DNR-CC status. Following discussions about the differences in these status, requested DNR-CCA, no intubation. Also discussed at length concept of a central line and pressor therapy usage. Patient and sister declined central line and would only be willing to use transient pressor therapy up to the maximum dose allowed peripherally. Medications at Discharge Home Medications atorvastatin 40 mg tablet 40 mg PO DAILY 10/15/24 bisacodyl 5 mg tablet 5 mg PO QHS 10/15/24 doxazosin 4 mg tablet 4 mg PO QHS 10/15/24 levothyroxine 200 mcg tablet 200 mcg PO DAILY 10/15/24 metoprolol tartrate 100 mg tablet 100 mg PO BID 10/15/24 apixaban 5 mg tablet (Eliquis) 5 mg PO BID 30 days #60 tabs 10/18/24 cephalexin 250 mg capsule 250 mg PO Q8H 1 week #21 caps 10/18/24 doxycycline monohydrate 100 mg capsule 100 mg PO BID 7 days #14 caps 10/18/24 midodrine 5 mg tablet 10 mg (2 x 5 mg) PO TIDCM 30 days #180 tabs 10/18/24 sennosides 8.6 mg-docusate sodium 50 mg tablet (Stimulant Laxative Plus) 2 tab PO BID PRN PRN Constipation #0 tabs 10/18/24 Physical Exam Narrative Seen and examined Patient looks little better with more alertness. Her pain in the lower legs also better. Does not want IV poke or PICC line. The patient has bilateral chronic lower leg wounds with seepage/drainage for about 6 months. Not very ambulatory at home. Physical General: Awake, oriented x 2. HEENT: Atraumatic, PERRLA, EOMI, Normocephalic Oral: Oral mucosa dry Neck: Supple, No JVD, Negative Carotid Bruits Chest wall/Lungs: Air entry diminished in bilateral lung bases. No crepitation/rhonchi Cardiovascular: Sinus bradycardia, Normal S1, Normal S2, No M/G/R Abdomen: Bowel Sounds Present, Soft, Non Tender, Non-Distended : No dysuria. No renal angle tenderness. No suprapubic tenderness. Extremities: Edema of left lower extremity , Capillary Refill Less than 3 Seconds Skin: Legs warm dressing wrapped. See patient chronic wound. Contiguous area of cellulitis Musculoskeletal: No Tenderness to Palpation of Joints or Extremities Neurological: No acute focal neurological deficit. Psych/Mental Status: Flat affect. Looks sad Medical Records Data Medical Nutrition Assessment Dietitian: Malnutrition Criteria Met Start: 10/16/24 15:25 Freq: Status: Active Protocol: Document 10/16/24 15:25 CATHY (Rec: 10/16/24 15:25 ANALISA [id number]) Nutrition Malnutrition Evidence of Yes Malnutrition Exists Malnutrition (severe Acute Illness/Injury ): Evidenced By Suboptimal Energy Intake (Severe),Physical Changes ( Moderate),Physical Changes (Severe) Clinical Problem Acute Disease or Injury Related Malnutrition Etiology related to decreased appetite and oral intakes Signs/Symptoms as evidenced by oral intakes for the past two weeks meeting less than 25% of estimated nutrient needs and NFPA indicating moderate to severe muscle and fat loss (temples, clavicles, deltoids, buccal, etc.). Status Active Problem Recommendation Dietitian Recommend continuing Cardiac - Heart Healthy diet to Recommendations/ aid in management of edema. Will order Magic Cup with Changes lunch and a milkshake with dinner to help increase oral intakes. If intakes remain poor, may also try fortified foods. Weight / BMI Weight Weight: 180 lb 12.8 oz Body Mass Index (BMI) 23.9 ABG / Lab / Microbiology Data 10/17/24 05:35 10/17/24 05:35 Microbiology: Microbiology 10/15/24 21:12 Wound - Leg, Left Gram Stain - Final 10/15/24 21:12 Wound - Leg, Left Wound Culture - Preliminary Gram negative olga Escherichia coli Streptococcus mitis/ oralis 10/15/24 21:12 Wound - Leg, Left Skin and Soft Tissue MRSA/MSSA (PCR - Final Staphylococcus aureus 10/15/24 11:30 Wound - Leg Gram Stain - Final 10/15/24 11:30 Wound - Leg Wound Culture - Preliminary Gram negative olga Escherichia coli Staphylococcus aureus Coag Negative Staph 10/15/24 12:00 Urine, Random Urine Culture - Final Mixed Gram Positive Organisms 10/15/24 11:30 Blood Culture (Wb) - Arm Left Blood Culture - Preliminary No growth in 48 hours. 10/15/24 12:18 Blood Culture (Wb) - Arm Left Blood Culture - Preliminary No growth in 48 hours. 10/15/24 21:12 Nasal Secretion MRSA (PCR) - Final D/C Instructions Discharge Diet: No restrictions Weight Bearing Status: Weight bearing as tolerated Call your doctor if you observe: Uncontrolled pain and - [facility] DC O2, CPAP, BIPAP Needs Home O2 Discharge instructions: No When: IN 2 WEEKS Meaningful Use Info Meaningful Use Meaningful Use Diagnoses (Choose all that apply): None applicable Ischemic Stroke Statin Dosing Therapy Reference: STATIN DOSE THERAPY REFERENCE: * Patients > 75 years receive moderate or high dose statin therapy. * Patients 75 years or YOUNGER should receive HIGH intensity statin dose unless contraindicated. You will be required to document reason for non-treatment if statin daily dose does not meet guidelines. HIGH DOSE STATIN THERAPY DAILY Atorvastatin > than or = to 40 mg Rosuvastatin > than or = to 20 mg Amlodipine + Atorvastatin > than or = to 2.5/40 mg Ezetimibe + Simvastatin 10/80 mg Simvastatin 80mg Discharge Plan Admission Admit Date/Time: 10/15/24 14:42 Primary Reason for Your Visit: Septic shock Attending Provider: Deangelo Salter Primary Care Provider: Sussy Nelson Consulting Providers: Radha Machuca; Aly Urias; Brayan Rosas; Toy Arriaga; Ronal Becerra; Faustino Mchugh; Timo Loyd; John Cui; Erwin Aviles; Yajaira Rodriguez; Dwayne Esquivel; Chava Arellano; Ender Holt; Anna Candelaria; Poonam Quiñones; Portia Crocker; Oscar Hernandez; Andres Mirza; Yonas Hardy; Corbin Cortes; Isiah Alejo; Mayelin Lovelace; Jose Lomeli; Domingo Hurd; Pedrito Christie; Goyo Finley Discharge Orders/Prescriptions Prescriptions: New sennosides-docusate sodium [Stimulant Laxative Plus] 8.6-50 mg Tablet 2 tab PO BID PRN PRN (Reason: Constipation) Qty: 0 0RF midodrine 5 mg Tablet 10 mg PO TIDCM 30 Days Qty: 180 0RF doxycycline monohydrate 100 mg Capsule 100 mg PO BID 7 Days Qty: 14 0RF Eliquis 5 mg Tablet 5 mg PO BID 30 Days Qty: 60 2RF cephalexin 250 mg capsule 250 mg PO Q8H 7 Days Qty: 21 0RF Continued atorvastatin 40 mg tablet 40 mg PO DAILY metoprolol tartrate 100 mg tablet 100 mg PO BID doxazosin 4 mg tablet 4 mg PO QHS levothyroxine 200 mcg tablet 200 mcg PO DAILY bisacodyl 5 mg tablet 5 mg PO QHS Discontinued furosemide 40 mg tablet 40 mg PO DAILY Referrals / Follow Up: Sussy Nelson MD [Primary Care Provider] - Jose Alejandro Lewis DO [Non-Staff] - Disposition Disposition (needs filled in before D/C Order can be placed): Hospice in Home Charges/Coding Addendum Addendum: Patient discharged to home hospice care Visit Charges Inpatient E&M: 50882 Disch Hosp >30min
--- NOTE | 2024-10-18 09:39 | CASEMGMT ---
BENSON HUFF notified by hospitalist that pt will be dc'd home on hospice with reina. TC to hospice and spoke with Karin to determine if pt will be covered for meds under hospice or if pt will obtain on own. Per Karin, this med would not be covered. BENSON HUFF into pt room, pt sitting up in bed in no distress with family at bedside. Requested rx be sent to [facility] [employer] with meds delivered to room, notified hospitalist. TC to [facility] [employer], spoke with Giselle,plan for savings card with [employer] and they will have meds delivered to room. Aware pt to leave at noon.
[2024-10-18] MEDS: oxyCODONE 5 MG Tablet PO (10:23)
[2024-10-18] MEDS: Piperacil/Tazobactam 3.375 GM in 0.9% Normal Saline (50mL MB+) 50 ML IV (10:24)
--- NOTE | 2024-10-18 10:29 | PHA.DC.MR.R ---
Pharmacy IN Med Reconciliation Pharmacy Service has performed discharge medication reconciliation for this patient. Discharge home with hospice. Did not equal opportunity counselor. The patient's discharge medication list was reviewed for discrepancies and discrepancies were resolved. Medications at Discharge Home Medications atorvastatin 40 mg tablet 40 mg PO DAILY 10/15/24 bisacodyl 5 mg tablet 5 mg PO QHS 10/15/24 doxazosin 4 mg tablet 4 mg PO QHS 10/15/24 levothyroxine 200 mcg tablet 200 mcg PO DAILY 10/15/24 metoprolol tartrate 100 mg tablet 100 mg PO BID 10/15/24 apixaban 5 mg tablet (Eliquis) 5 mg PO BID 30 days #60 tabs 10/18/24 cephalexin 250 mg capsule 250 mg PO Q8H 1 week #21 caps 10/18/24 doxycycline monohydrate 100 mg capsule 100 mg PO BID 7 days #14 caps 10/18/24 midodrine 5 mg tablet 10 mg (2 x 5 mg) PO TIDCM 30 days #180 tabs 10/18/24 sennosides 8.6 mg-docusate sodium 50 mg tablet (Stimulant Laxative Plus) 2 tab PO BID PRN PRN Constipation #0 tabs 10/18/24
--- NOTE | 2024-10-18 11:30 | WOUNDNOTE ---
wound photo: right lower leg
[2024-10-18 12:08] VITALS: BP 88/59; PULSE 54; RESP 12; TEMP 37.2; O2SAT 95
--- NOTE | 2024-10-18 12:58 | CHAPLAIN ---
Type of Pastoral Visit _x__ Initial Visit ___ Follow-up Visit ___ On-call Visit ___ General Patient Visit ___ Spiritual Assessment ___ Family Conference ___ Bereavement ___ Rapid Response ___ Code Blue ___ Other (describe below) Pastoral Care Referral From _x__ Patient ___ Family ___ Nurse ___ Physician ___ Steam Turbine Assembler ___ Instant Print Operator ___ Other (describe below) Sacrament/Intervention _x__ Active listening ___ Anointing ___ Confucianism ___ Bereavement ___ Communion _x__ Katarina exploration ___ ___ Life review _x__ Prayer ___ Reconciliation ___ Sacrament of Sick _x__ Supportive presence ___ Wedding ___ Other (describe below) Pastoral Comments patient and her sister are in the room and both are welcoming; pt admits that she is very tired or weak; pt does engage in answering the questions but also states that 'my sister can answer too'; pt talks about other family members that have including her ; pt says that katarina helps her face her mortality and that she is open to receiving scriptures and prayers; sister suggests the Psa 23 passage; pt states that she appreciates the visit and offer of spiritual care
--- NOTE | 2024-10-18 13:39 | WOUNDNOTE ---
wound photo: left lower leg
--- NOTE | 2024-10-18 13:39 | WOUNDNOTE ---
wound photo: left posterior lower leg
[2024-10-19 13:08] LABS: Vitamin D 1,25-Dihydroxy 18.1 pg/mL (24.8-81.5)
== END 2024-10-18 12:05 | disposition hospice, home (50) | DRG 871 ==
LOC: ED 15:25 → ICU 16:37 → MS3 10-17 12:54
PROVIDERS: Hospitalist; Admitting Provider Family Medicine; Emergency Provider Emergency Medicine; PCP Family Medicine; Referring Provider Emergency Medicine; Visit Provider Internal Medicine
DX: A41.9 Sepsis, unspecified organism (principal); E43 Unspecified severe protein-calorie malnutrition; R65.21 Severe sepsis with septic shock; I82.431 Acute embolism and thrombosis of right popliteal vein; D69.3 Immune thrombocytopenic purpura; L97.811 Non-pressure chronic ulcer of other part of right lower leg limited to breakdown of skin; N17.9 Acute kidney failure, unspecified; E87.1 Hypo-osmolality and hyponatremia; I82.441 Acute embolism and thrombosis of right tibial vein; I82.451 Acute embolism and thrombosis of right peroneal vein; L97.221 Non-pressure chronic ulcer of left calf limited to breakdown of skin; L03.115 Cellulitis of right lower limb; L03.116 Cellulitis of left lower limb; D63.1 Anemia in chronic kidney disease; E83.51 Hypocalcemia; Z66 Do not resuscitate; N18.32 Chronic kidney disease, stage 3b; I12.9 Hypertensive chronic kidney disease with stage 1 through stage 4 chronic kidney disease, or unspecified chronic kidney disease; E03.9 Hypothyroidism, unspecified; E78.5 Hyperlipidemia, unspecified; I87.2 Venous insufficiency (chronic) (peripheral); B95.4 Other streptococcus as the cause of diseases classified elsewhere; B96.20 Unspecified Escherichia coli [E. coli] as the cause of diseases classified elsewhere; B95.61 Methicillin susceptible Staphylococcus aureus infection as the cause of diseases classified elsewhere; R55 Syncope and collapse; Z68.23 Body mass index [BMI] 23.0-23.9, adult; Z79.890 Hormone replacement therapy; Z79.899 Other long term (current) drug therapy; Z86.73 Personal history of transient ischemic attack (TIA), and cerebral infarction without residual deficits
CPT/HCPCS: 71045; 80048; 80053; 81001; 81050; 82306; 82330; 82340; 82652; 83036; 83605; 83735; 83970; 84100; 84145; 84156; 84484; 85025; 85610; 85652; 85730; 86140; 87040; 87070; 87077; 87086; 87088; 87186; 87205; 87640; 87641; 93005; 93306; 93970; 94668; 97802; 99285; Q9957; A4216; J0612; J2405